=== PATIENT | male | born 1950 | race Caucasian/White ===

== ENCOUNTER 2016-06-15 16:46 | Inpatient (IN) | payer MEDICARE ==
[2016-06-15] MEDS ORDERED: ACETAMINOPHEN 325 MG TABLET PO PRN (16:49)
--- NOTE | 2016-06-15 17:12 | PDOC H&P ---
History of Present Illness Admission Date/PCP: 06/15/16 16:46 Patient complains of: Chest pain dizziness and sore throat History of Present Illness: ARCHIE PAINTING is a 65 year old Patient's came to the my office with the complaining of a chest pain on and off since last 3 and not feeling well and feeling dizzy since also complained of some sore throat and mild congestions. Patient have a history of cardiac arrest and status post defibrillator placement at the groin. Patient also have a cardiac cath was done in 2005 and was normal. Also see a cardiology at [place] in the last seen in 2009 and it was stress test was done. Patient also have a replacement of the defibrillator 4 months back. Also significant history of the peripheral vascular disease and the patient's see the vascular surgeon for the. Out of the several blood pressure medication and cholesterol medication since last 6 week and patient is not taking the medications as prescribed patients taking the aspirin and Plavix every day. My office patient was not complaining with chest pain but not feeling well patients at this point with the multiple comorbidities started admitted in the hospital for further evaluation and treatment. Patient also have a significant history of the right-sided inguinal hernia since last 1 year and since last 3 months it is getting more worse patient still able to reduce to back but is more uncomfortable at this point. Multiple comorbidity this with the patient's and directly admit the patient is in the hospital for further evaluation and treatment and patient is agreeable Past Medical History Cardiac History Note: History of the cardiac arrest status post defibrillator and a history of Brugada disease EENT Medical History: Denies: None, Cataracts, Eyes, Ears, Nose, Throat, Other Neurological Medical History: Denies: None, Hemorrhagic CVA, Ischemic CVA, Migraine, Multiple Sclerosis, Seizures, Other Endocrine Medical History: Denies: None, Diabetes Mellitus Type 1, Diabetes Mellitus Type 2, Gestational Diabetes, Hyperthyroidism, Hypothyroidism, Obesity, Other Renal/ Medical History: Denies: None, Chronic Kidney Disease, End Stage Renal Disease, Nephrolithiasis, Other Malignancy Medical History: Denies: None, Bone Cancer, Brain Cancer, Breast Cancer, Cervical Cancer, Colorectal Cancer, Leukemia, Liver Cancer, Lung Cancer, Lymphoma, Ovarian Cancer , Pancreatic Cancer, Renal (Kidney) Cancer, Skin Cancer, Other GI Medical History: Denies: None, Cirrhosis, Crohn's Disease, Diverticulitis, Gastroesophageal Reflux Disease, Hepatitis, Hiatal Hernia, Peptic Ulcer Disease, Ulcerative Colitis, Other Musculoskeltal Medical History: Reports: Arthritis Skin Medical History: Denies: None, Eczema, Psoriasis, Other Psychiatric Medical History: Reports: Depression Traumatic Medical History: Denies: None, Gunshot Wound, Pneumothorax, Stab Wound, Traumatic Brain Injury , Other Hematology: Denies: None, Anemia, Hemophilia, Sickle Cell Disease, Bleeding Tendencies, Heparin Induced Thrombocytopenia, Neutropenia, Other Infectious Medical History: Denies: None, Clostridium Difficile, Hepatitis B, Hepatitis C, HIV, Methicillin-Resistant Staph Aureus, Vancomycin-Resistant Enterococci, Other Past Surgical History Past Surgical History: Reports: Internal Defibrillator, Vascular Surgery Social History Smoking Status: Current Every Day Smoker Frequency of Alcohol Use: Social Hx Recreational Drug Use: No Hx Prescription Drug Abuse: No Family History Family History: Reviewed & Not Pertinent Parental Family History Reviewed: Yes Children Family History Reviewed: Yes Sibling(s) Family History Reviewed.: Yes Review of Systems Constitutional: PRESENT: weakness. ABSENT: chills, fever(s), headache(s), weight gain, weight loss Eyes: ABSENT: visual disturbances Ears: ABSENT: hearing changes Cardiovascular: PRESENT: chest pain. ABSENT: dyspnea on exertion, edema, orthropnea, palpitations Respiratory: ABSENT: cough, hemoptysis Gastrointestinal: ABSENT: abdominal pain, constipation, diarrhea, hematemesis, hematochezia, nausea, vomiting Genitourinary: ABSENT: dysuria, hematuria Musculoskeletal: ABSENT: joint swelling Integumentary: ABSENT: rash, wounds Neurological: PRESENT: dizziness. ABSENT: abnormal gait, abnormal speech, confusion, focal weakness, syncope Psychiatric: ABSENT: anxiety, depression, homidical ideation, suicidal ideation Endocrine: ABSENT: cold intolerance, heat intolerance, menstrual abnormalities, polydipsia, polyuria Hematologic/Lymphatic: ABSENT: easy bleeding, easy bruising, lymphadenopathy Physical Exam General appearance: PRESENT: no acute distress, well-developed, well-nourished Head exam: PRESENT: atraumatic, normocephalic Eye exam: PRESENT: conjunctiva pink, EOMI, PERRLA. ABSENT: scleral icterus Ear exam: PRESENT: normal external ear exam Mouth exam: PRESENT: moist, tongue midline Neck exam: PRESENT: full ROM. ABSENT: carotid bruit, JVD, lymphadenopathy, thyromegaly Cardiovascular exam: PRESENT: RRR. ABSENT: diastolic murmur, rubs, systolic murmur Pulses: PRESENT: normal dorsalis pedis pul, +2 pedal pulses bilateral Vascular exam: PRESENT: normal capillary refill GI/Abdominal exam: PRESENT: hernia - Right inguinal hernia, normal bowel sounds , soft. ABSENT: distended, guarding, mass, organolmegaly, rebound, tenderness Rectal exam: PRESENT: deferred Neurological exam: PRESENT: alert, awake, oriented to person, oriented to place , oriented to time, oriented to situation, CN II-XII grossly intact. ABSENT: motor sensory deficit Psychiatric exam: PRESENT: appropriate affect, normal mood. ABSENT: homicidal ideation, suicidal ideation Skin exam: PRESENT: dry, intact, warm. ABSENT: cyanosis, rash Assessment & Plan - Diagnosis (1) Chest pain Qualifiers: Chest pain type: unspecified Qualified Code(s): R07.9 - Chest pain, unspecified Is this a current diagnosis for this admission?: YesPlan: Admit the patient in the telemetry and was put the patient on OCP protocol and consulted cardiology (2) Inguinal hernia of right side without obstruction or gangrene Is this a current diagnosis for this admission?: YesPlan: Consult to general surgery (3) Cardiac defibrillator in situ Is this a current diagnosis for this admission?: YesPlan: Recently change at the [place] (4) Brugada syndrome Is this a current diagnosis for this admission?: YesPlan: Chest post cardiac defibrillator (6) H/O cardiac arrhythmia Is this a current diagnosis for this admission?: YesPlan: Currently stable (7) Hypertension Qualifiers: Hypertension type: essential hypertension Qualified Code(s): I10 - Essential (primary) hypertension Is this a current diagnosis for this admission?: YesPlan: Uncontrolled because of the patient is non-comply and not taking the medications as last 6 week (8) Hyperlipidemia Is this a current diagnosis for this admission?: YesPlan: Currently on a statin but not taking as prescribed (9) Sore throat (viral) Is this a current diagnosis for this admission?: YesPlan: Most likely a viral will do the strep test and put the patient on IV Rocephin (10) Peripheral vascular disease Is this a current diagnosis for this admission?: YesPlan: Currently on aspirin and Plavix - Time Time Spent: 30 to 50 Minutes Medications reviewed and adjusted accordingly: Yes Anticipated discharge: Home Within: within 48 hours - Inpatient Certification Medical Necessity: Failure to Improve With Outpatient Therapy, Significant Comorbidiites Make Outpatient Treatment Too Risky, Need Close Monitoring Due to Risk of Patient Decompensation 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
[2016-06-15 17:30] LABS: ABSOLUTE BASOPHILS # (AUTO) 0.1 10^3/uL (0.0-0.2); ABSOLUTE EOSINOPHILS # (AUTO) 0.2 10^3/uL (0.0-0.6); ABSOLUTE LYMPHOCYTES (AUTO) 2.1 10^3/uL (0.5-4.7); ABSOLUTE MONOCYTES (AUTO) 0.7 10^3/uL (0.1-1.4); ABSOLUTE NEUT (AUTO) 7.6 10^3/uL (1.7-8.2); BASOPHILS % (AUTO) 0.6 % (0-2); EOSINOPHILS % (AUTO) 2.3 % (0-6); HEMATOCRIT 49.9 % (37.9-51.0); HEMOGLOBIN 16.8 g/dL (13.5-17.0); HGB HCT DIFFERENCE 0.5; MEAN CORPUSCULAR HEMOGLOBIN 28.4 pg (27.0-33.4); MEAN CORPUSCULAR HGB CONC 33.7 g/dL (32.0-36.0); MEAN CORPUSCULAR VOLUME 84 fl (80-97); MONOCYTES % (AUTO) 6.2 % (3-13); RED BLOOD COUNT 5.93 10^6/uL (4.35-5.55); RED CELL DISTRIBUTION WIDTH 15.3 % (11.5-14.0); SEGMENTED NEUTROPHILS % (AUTO) 70.9 % (42-78); WHITE BLOOD COUNT 10.7 10^3/uL (4.0-10.5)
[2016-06-15] MEDS ORDERED: INFLUENZA ADLT QUAD (36MOS+) 2016-17 VAC 0.5 ML SYR IM PRN (17:35)
[2016-06-15 17:49] LABS: ALANINE AMINOTRANSFERASE 49 U/L (21-72); ALBUMIN 4.9 g/dL (3.5-5.0); ALKALINE PHOSPHATASE 126 U/L (38-126); ANION GAP 16 (5-19); ASPARTATE AMINO TRANSFERASE 25 U/L (17-59); BILIRUBIN,TOTAL 0.5 mg/dL (0.2-1.3); BLOOD UREA NITROGEN 14 mg/dL (7-20); CALCIUM 10.5 mg/dL (8.4-10.2); CARBON DIOXIDE 25 mmol/L (22-30); CHLORIDE 102 mmol/L (98-107); CREATININE RESULT 0.83 mg/dL (0.52-1.25); GLUCOSE 83 mg/dL (75-110); POTASSIUM 4.6 mmol/L (3.6-5.0); SODIUM 142.5 mmol/L (137-145); TOTAL PROTEIN 7.7 g/dL (6.3-8.2)
--- NOTE | 2016-06-15 17:57 | PDOC CONSULTATION ---
History of Present Illness Admission Date/PCP: 06/15/16 16:46 History of Present Illness: 65-year-old male with the several year history of enlarging left inguinal hernia. He has had them chronic cough secondary to lisinopril recently and his hernia has worsened. It has been a scrotal hernia that was reducible but the it no longer is reducible. Patient denies any nausea or vomiting and denies any abdominal pain nor bowel habit changes. The hernia has not been reducible for quite some time now. He is currently in the hospital for evaluation of chest pain. Past Medical History Cardiac Medical History: Reports: Coronary Artery Disease, Peripheral Vascular Disease EENT Medical History: Denies: None, Cataracts, Eyes, Ears, Nose, Throat, Other Neurological Medical History: Denies: None, Hemorrhagic CVA, Ischemic CVA, Migraine, Multiple Sclerosis, Seizures, Other Endocrine Medical History: Denies: None, Diabetes Mellitus Type 1, Diabetes Mellitus Type 2, Gestational Diabetes, Hyperthyroidism, Hypothyroidism, Obesity, Other Renal/ Medical History: Denies: None, Chronic Kidney Disease, End Stage Renal Disease, Nephrolithiasis, Other Malignancy Medical History: Denies: None, Bone Cancer, Brain Cancer, Breast Cancer, Cervical Cancer, Colorectal Cancer, Leukemia, Liver Cancer, Lung Cancer, Lymphoma, Ovarian Cancer , Pancreatic Cancer, Renal (Kidney) Cancer, Skin Cancer, Other GI Medical History: Denies: None, Cirrhosis, Crohn's Disease, Diverticulitis, Gastroesophageal Reflux Disease, Hepatitis, Hiatal Hernia, Peptic Ulcer Disease, Ulcerative Colitis, Other Musculoskeltal Medical History: Reports: Arthritis Skin Medical History: Denies: None, Eczema, Psoriasis, Other Psychiatric Medical History: Reports: Depression Traumatic Medical History: Denies: None, Gunshot Wound, Pneumothorax, Stab Wound, Traumatic Brain Injury , Other Hematology: Denies: None, Anemia, Hemophilia, Sickle Cell Disease, Bleeding Tendencies, Heparin Induced Thrombocytopenia, Neutropenia, Other Infectious Medical History: Denies: None, Clostridium Difficile, Hepatitis B, Hepatitis C, HIV, Methicillin-Resistant Staph Aureus, Vancomycin-Resistant Enterococci, Other Past Surgical History Past Surgical History: Reports: Internal Defibrillator, Vascular Surgery, Other - Status post several ventral hernia repair last one with mesh which failed. Social History Smoking Status: Current Every Day Smoker Frequency of Alcohol Use: Social Hx Recreational Drug Use: No Drugs: None Hx Prescription Drug Abuse: No Family History Family History: Reviewed & Not Pertinent Parental Family History Reviewed: No Children Family History Reviewed: No Sibling(s) Family History Reviewed.: No Medication/Allergy Allergies/Adverse Reactions: No Known Allergies Allergy (Unverified 06/15/16 17:26) Physical Exam Vital Signs: Temp Pulse Resp BP Pulse Ox 70 06/15/16 16:59 Intake & Output 06/14/16 06/15/16 06/16/16 06:59 06:59 06:59 Intake Total 0 Balance 0 Weight 87.543 kg General appearance: PRESENT: no acute distress Neck exam: PRESENT: other - Supple with no masses Respiratory exam: PRESENT: clear to auscultation jada Cardiovascular exam: PRESENT: RRR GI/Abdominal exam: PRESENT: other - Soft nondistended nontender to palpation. An epigastric fist-sized the hernia that is reducible. Gentrourinary exam: PRESENT: other - Huge scrotal hernia that is soft and partially reducible with no tenderness and no erythema. Unable to palpate the left testicle well due to the herniation. The right testicle feels normal. Patient does have a right inguinal hernia as well but it is the shallow and only palpable with Valsalva and spontaneously reduces. Extremities exam: PRESENT: other - No swelling Neurological exam: PRESENT: alert, awake Psychiatric exam: PRESENT: appropriate affect Results Laboratory Results: 06/15/16 17:15 06/15/16 17:15 06/15/16 06/15/16 17:15 17:15 WBC 10.7 H RBC 5.93 H Hgb 16.8 Hct 49.9 MCV 84 MCH 28.4 MCHC 33.7 RDW 15.3 H Plt Count 408 Seg Neutrophils % 70.9 Lymphocytes % 20.0 Monocytes % 6.2 Eosinophils % 2.3 Basophils % 0.6 Absolute Neutrophils 7.6 Absolute Lymphocytes 2.1 Absolute Monocytes 0.7 Absolute Eosinophils 0.2 Absolute Basophils 0.1 Sodium Cancelled Potassium Cancelled Chloride Cancelled Carbon Dioxide Cancelled Anion Gap Cancelled BUN Cancelled Creatinine Cancelled Est GFR ( Amer) Cancelled Est GFR (Non-Af Amer) Cancelled Glucose Cancelled Calcium Cancelled Assessment & Plan - Diagnosis (1) Bilateral inguinal hernia Is this a current diagnosis for this admission?: YesPlan: The right side is asymptomatic and incidental and does not require repair at this time. The left side is huge and scrotal and chronically incarcerated. He will require repair of this hernia once his cardiac workup is complete and that he is deemed fit for surgery. He has no acute problems with this hernia. Please have him see me as an outpatient for scheduling of his left inguinal hernia once his cardiology evaluation has been completed.
[2016-06-15 17:59] LABS: CREATINE KINASE MB 2.43 ng/mL (<4.55); TROPONIN I 0.032 ng/mL
[2016-06-15] MEDS ORDERED: ENOXAPARIN SODIUM INJ 40 MG/0.4 ML DISP.SYRIN SUBCUT ONE (18:00)
[2016-06-15] MEDS: LANSOPRAZOLE 15 MG TAB.RAP.DR PO SCH (18:37)
--- NOTE | 2016-06-15 18:57 | PDOC CONSULTATION ---
[id number] pains and preop clearance History of Present Illness Admission Date/PCP: 06/15/16 16:46 Patient complains of: Chest pains History of Present Illness: 65-year-old male with the several year history of enlarging left inguinal hernia. He has had them chronic cough secondary to lisinopril recently and his hernia has worsened. It has been a scrotal hernia that was reducible but the it no longer is reducible. Patient denies any nausea or vomiting and denies any abdominal pain nor bowel habit changes. The hernia has not been reducible for quite some time now. He is currently in the hospital for evaluation of chest pain. Patient described the chest discomfort as aching as well as sharp, off and on. Patient claims that they tend to improve after drinking of soda. Patient does take Pepcid on a when necessary basis. Patient denied any significant exertional component to the chest pain. Patient does have history of peripheral vascular disease having had peripheral bypass surgery in the right lower leg below the knee for a ischemic toe. Patient does have significant cardiac risk factors. This history was reviewed and confirmed. Past Medical History Cardiac Medical History: Reports: Peripheral Vascular Disease, Other - Brugada syndrome, status post defibrillator placement EENT Medical History: Denies: None, Cataracts, Eyes, Ears, Nose, Throat, Other Neurological Medical History: Denies: None, Hemorrhagic CVA, Ischemic CVA, Migraine, Multiple Sclerosis, Seizures, Other Endocrine Medical History: Denies: None, Diabetes Mellitus Type 1, Diabetes Mellitus Type 2, Gestational Diabetes, Hyperthyroidism, Hypothyroidism, Obesity, Other Renal/ Medical History: Denies: None, Chronic Kidney Disease, End Stage Renal Disease, Nephrolithiasis, Other Malignancy Medical History: Denies: None, Bone Cancer, Brain Cancer, Breast Cancer, Cervical Cancer, Colorectal Cancer, Leukemia, Liver Cancer, Lung Cancer, Lymphoma, Ovarian Cancer , Pancreatic Cancer, Renal (Kidney) Cancer, Skin Cancer, Other GI Medical History: Denies: None, Cirrhosis, Crohn's Disease, Diverticulitis, Gastroesophageal Reflux Disease, Hepatitis, Hiatal Hernia, Peptic Ulcer Disease, Ulcerative Colitis, Other Musculoskeltal Medical History: Reports: Arthritis Skin Medical History: Denies: None, Eczema, Psoriasis, Other Psychiatric Medical History: Reports: Depression Traumatic Medical History: Denies: None, Gunshot Wound, Pneumothorax, Stab Wound, Traumatic Brain Injury , Other Hematology: Denies: None, Anemia, Hemophilia, Sickle Cell Disease, Bleeding Tendencies, Heparin Induced Thrombocytopenia, Neutropenia, Other Infectious Medical History: Denies: None, Clostridium Difficile, Hepatitis B, Hepatitis C, HIV, Methicillin-Resistant Staph Aureus, Vancomycin-Resistant Enterococci, Other Past Surgical History Past Surgical History: Reports: Internal Defibrillator, Vascular Surgery, Other - Status post several ventral hernia repair last one with mesh which failed. Social History Information Source: Patient Smoking Status: Current Every Day Smoker Frequency of Alcohol Use: Social Hx Recreational Drug Use: No Drugs: None Hx Prescription Drug Abuse: No Family History Family History: Reviewed & Not Pertinent Parental Family History Reviewed: Yes Children Family History Reviewed: Yes Sibling(s) Family History Reviewed.: Yes Medication/Allergy Home Medications: Albuterol Sulfate [Ventolin HFA MDI 18 GM] 2 puff IH Q4HP PRN 06/15/16 Aspirin [Aspirin EC] 81 mg PO QHS 06/15/16 Atorvastatin Calcium [Lipitor 80 mg Tablet] 80 mg PO DAILY 06/15/16 Carvedilol [Coreg 25 mg Tablet] 25 mg PO BID 06/15/16 Clopidogrel Bisulfate [Plavix 75 mg Tablet] 75 mg PO DAILY 06/15/16 Famotidine [Pepcid 20 mg Tablet] 20 mg PO DAILYP PRN 06/15/16 Gabapentin [Neurontin 300 mg Capsule] 300 mg PO TID 06/15/16 Lisinopril [Prinivil 40 mg Tablet] 40 mg PO DAILY 06/15/16 Meloxicam [Mobic 15 mg Tablet] 15 mg PO DAILY 06/15/16 Naproxen Sodium [Aleve] 1 tab PO DAILYP PRN 06/15/16 Sertraline HCl [Zoloft] 100 mg PO DAILY 06/15/16 Allergies/Adverse Reactions: No Known Allergies Allergy (Unverified 06/15/16 17:26) Review of Systems Review of Systems: Please see history of present illness and past medical history as wall. Constitutional: No fever or chills reported. Head : No recent chronic headaches, recent head injury. Eyes: No recent eye pain, diplopia, redness, discharge, acute visual changes. Ears: No recent chronic ear pain, acute hearing loss, ear discharge. Oral cavity: No recent ulcerations, bleeding, oral cavity discomfort. Neck: No recent acute neck pain reported. Hematologic: No recent easy bruising or bleeding or hematologic malignancy reported. Lymphatic: No recent lymphatic malignancy, chronic lymphadenopathy reported yet Cardiovascular system review: See history of present illness. No recent defibrillator discharges. No recent syncope or near syncope. Respiratory system review: No recent chronic cough, hemoptysis, blood clots in the lungs reported. Mild Shortness of breath on exertion Gastrointestinal system review: Negative for any recent acute or chronic abdominal pain, hematemesis, melena, recent change in bowel habits. Patient has chronic abdominal hernia and chronic left inguinal hernia. Genitourinary system review: No recent acute or chronic hematuria, flank pain, UTI etc. reported. Skin system review: Negative for any recent abnormal bruising, no rash, no pruritus reported. Neurologic: No prior history of strokes, mini strokes, seizure disorder. Psychologic: No history of major psychosis or depression reported. Musculoskeletal: Minor aches and pains reported. No acute joint swelling reported. Endocrine: No recent polyuria, polydipsia, recent heat or cold intolerance. Physical Exam Vital Signs: Temp Pulse Resp BP Pulse Ox 70 06/15/16 16:59 Intake & Output 06/14/16 06/15/16 06/16/16 06:59 06:59 06:59 Intake Total 0 Balance 0 Weight 87.543 kg Exam: GENERAL: well-nourished and in no acute distress. Alert and oriented x3 HEAD: Atraumatic, normocephalic. EYES: Pupils equal round and reactive to light, extraocular movements intact, sclera anicteric, conjunctiva are normal. ENT: TMs normal, nares patent, oropharynx clear without exudates. Moist mucous membranes. No oral ulcerations or bleeding gums noted NECK: supple without lymphadenopathy. Trachea is central. No cervical or axillary lymphadenopathy noted. Carotids are 2+, JVD WNL LUNGS: Respiration seems nonlabored, no significant accessory muscle action noted. Breath sounds clear to auscultation bilaterally and equal. No wheezes rales or rhonchi. No significant dullness noted on percussion. Defibrillator noted on the left side. CHEST: Palpation of the chest wall shows no significant chest wall tenderness or abnormalities. Defibrillator noted on the left side. HEART: [place] [employer], No PSH, 1/6 SANTO aortic area, 1/6 robert systolic murmur mitral area, no rubs, no gallops. ABDOMEN: Soft, no significant tenderness appreciated, normoactive bowel sounds. No guarding, no rebound. No rigidity noted . No masses appreciated. Abdominal wall hernia noted and also rather large left inguinal hernia noted. EXTREMITIES: Pedal pulses are 1-2+, no calf tenderness noted. No clubbing or cyanosis.trace pedal edema noted NEUROLOGICAL: Focused neurological exam showed no significant neurologic deficit. Normal speech, no focal weakness appreciated. PSYCH: Normal mood, normal affect. Judgment and insight within normal limits. SKIN: No significant ecchymosis, rash, ulcerations or signs of pruritus noted. MUSCULOSKELETAL EXAM: No significant joint swelling noted. Results Laboratory Results: 06/15/16 17:15 06/15/16 17:15 06/15/16 06/15/16 06/15/16 17:15 17:15 17:15 WBC 10.7 H RBC 5.93 H Hgb 16.8 Hct 49.9 MCV 84 MCH 28.4 MCHC 33.7 RDW 15.3 H Plt Count 408 Seg Neutrophils % 70.9 Lymphocytes % 20.0 Monocytes % 6.2 Eosinophils % 2.3 Basophils % 0.6 Absolute Neutrophils 7.6 Absolute Lymphocytes 2.1 Absolute Monocytes 0.7 Absolute Eosinophils 0.2 Absolute Basophils 0.1 Sodium Cancelled 142.5 Potassium Cancelled 4.6 Chloride Cancelled 102 Carbon Dioxide Cancelled 25 Anion Gap Cancelled 16 BUN Cancelled 14 Creatinine Cancelled 0.83 Est GFR ( Amer) Cancelled > 60 Est GFR (Non-Af Amer) Cancelled > 60 Glucose Cancelled 83 Calcium Cancelled 10.5 H Total Bilirubin 0.5 AST 25 ALT 49 Alkaline Phosphatase 126 Total Protein 7.7 Albumin 4.9 06/15/16 06/15/16 06/15/16 17:15 17:15 17:15 Creatine Kinase 77 CK-MB (CK-2) 2.43 Troponin I 0.032 NT-Pro-B Natriuret Pep 76 EKG Comments: Sinus rhythm, ST elevation V1 and V2 along with prominent R, consistent with Brugada syndrome. Assessment & Plan - Diagnosis (1) Chest pain Qualifiers: Chest pain type: unspecified Qualified Code(s): R07.9 - Chest pain, unspecified Is this a current diagnosis for this admission?: Yes (2) Hyperlipidemia Qualifiers: Hyperlipidemia type: other hyperlipidemia Qualified Code(s): E78.4 - Other hyperlipidemia Is this a current diagnosis for this admission?: Yes (3) Hypertension Qualifiers: Hypertension type: essential hypertension Qualified Code(s): I10 - Essential (primary) hypertension Is this a current diagnosis for this admission?: Yes (4) Peripheral vascular disease Is this a current diagnosis for this admission?: Yes (5) Gastroesophageal reflux Qualifiers: Esophagitis presence: esophagitis presence not specified Qualified Code(s): K21.9 - Gastro-esophageal reflux disease without esophagitis Is this a current diagnosis for this admission?: Yes (6) Brugada syndrome Is this a current diagnosis for this admission?: Yes (7) Cardiac defibrillator in situ Is this a current diagnosis for this admission?: Yes - Notes Notes: Patient describes history of Brugada syndrome. He had internal defibrillator placed. He claims that he had heart catheterization which had shown normal coronaries. Patient however does have significant cardiac risk factors. Chest pain: In view of significant risk factors, patient will benefit from nuclear stress test. This will be scheduled. Unfortunately, cannot be done tomorrow because of some renovations being done in the stress lab. At this point will recommend cycling cardiac enzymes and EKG. If cardiac enzymes are negative, patient can be discharged with close cardiology follow-up and assessment the stress test. Patient does describe chest discomfort resolving with drinking of soda. This raises the possibility of distal esophagitis, gastroesophageal reflux. Will place patient on double dose proton pump inhibitor and see if this will improve his chest discomfort. Hypertension: Recommend good control of blood pressure. Dyslipidemia: Continue statin therapy. PVD: Currently stable. Gastroesophageal reflux: This is noted based on history. Patient to be placed on double dose proton pump inhibitor. Patient encouraged to report any further problems. If patient cardiac enzymes remain negative, and if he remained chest pain-free, patient could be discharged with outpatient stress test being scheduled. 2-D echo reviewed showed normal LVEF. No significant valvular abnormalities were noted. - Time Time Spent: 30 to 50 Minutes - CODE STATUS was discussed, patient remains full code. Multiple medical problems were addressed.More than 50% of the time spent coordinating care, discussing management plans with involved caregivers. Management plans discussed with involved personnels. Medical decision making was of moderate complexity.
[2016-06-15] MEDS ORDERED: CEFTRIAXONE 1 GM/D5W RTU 1 GM/50 ML RTUPB IV SCH (19:00)
--- NOTE | 2016-06-15 19:48 | XCELERA REPORT ---
[address] [address] Transthoracic Echocardiogram Report Name: ARCHIE PAINTING Age: 65 yrs Gender: Male : 1950 Patient Status: Inpatient Patient Location: [id number]\S\426\S\B Study Date: 06/15/2016 06:02 PM Height: 72 in Weight: 195 lb BSA: 2.1 m2 Procedure: A complete two-dimensional transthoracic echocardiogram was performed (2D, M-mode, spectral and color flow Doppler). The study was technically adequate with some images being suboptimal in quality. Reason For Study: chest pain Ordering Physician: CARLOS DANIEL Performed By: James Ledesma Interpretation Summary The left ventricular ejection fraction is normal. There is mild concentric left ventricular hypertrophy. The left ventricle is grossly normal size. Doppler measurements suggest pseudonormalized left ventricular relaxation, which is associated with grade II/IV or mild to moderate diastolic dysfunction Wall motion cannot be accurately commented on, but no definite regional wall motion abnormalities noted. The right ventricle is mildly dilated. The right ventricular systolic function is normal. The right atrium is mildly dilated. The left atrial size is normal. There is no mitral valve stenosis. There is a trace amount of mitral regurgitation There is no aortic valve stenosis There is a trace amount of aortic regurgitation There is a trace or physiologic amount of tricuspid regurgitation Tricuspid regurgitation jet envelope not well defined to measure RV systolic pressure accurately. The aortic root is not well visualized but is probably normal size. The inferior vena cava appeared normal and decreased > 50% with respiration (RAP 5-10 mmHg) There is no pericardial effusion. MMode/2D Measurements \T\ Calculations RVDd: 3.3 cm LVIDd: 5.4 cm FS: 42.0 % Ao root diam: 3.3 cm IVSd: 1.1 cm LVIDs: 3.1 cm EDV(Teich): 142.4 ml LVPWd: 1.1 cm ESV(Teich): 39.2 ml Ao root area: 8.6 cm2 EF(Teich): 72.5 % LA dimension: 3.4 cm Doppler Measurements \T\ Calculations MV E max michael: MV P1/2t max michael: Ao V2 max: LV V1 max P.7 cm/sec 52.8 cm/sec 129.4 cm/sec 4.1 mmHg MV A max michael: MV P1/2t: 51.9 msec Ao max PG: LV V1 max: 72.5 cm/sec 6.7 mmHg 100.9 cm/sec MV E/A: 0.71 MVA(P1/2t): 4.2 cm2 MV dec slope: 297.9 cm/sec2 MV dec time: 0.18 sec PA V2 max: TR max michael: RAP systole: 80.9 cm/sec 198.7 cm/sec 10.0 mmHg PA max PG: TR max P.8 mmHg 2.6 mmHg RVSP(TR): 25.8 mmHg Left Ventricle The left ventricle is grossly normal size. There is mild concentric left ventricular hypertrophy. The left ventricular ejection fraction is normal. Doppler measurements suggest pseudonormalized left ventricular relaxation, which is associated with grade II/IV or mild to moderate diastolic dysfunction. Wall motion cannot be accurately commented on, but no definite regional wall motion abnormalities noted. Right Ventricle The right ventricle is mildly dilated. The right ventricular systolic function is normal. Atria The right atrium is mildly dilated. The left atrial size is normal. Interarterial septum not well visualized and not well dopplered. Cannot comment on ASD/PFO presence. Mitral Valve The mitral valve is grossly normal. There is no mitral valve stenosis. There is a trace amount of mitral regurgitation. Aortic Valve The aortic valve is grossly normal. There is no aortic valve stenosis. There is a trace amount of aortic regurgitation. Tricuspid Valve The tricuspid valve is not well visualized secondary to technical limitations. There is no tricuspid stenosis. There is a trace or physiologic amount of tricuspid regurgitation. Tricuspid regurgitation jet envelope not well defined to measure RV systolic pressure accurately. Pulmonic Valve The pulmonic valve is not well visualized. Great Vessels The aortic root is not well visualized but is probably normal size. The inferior vena cava appeared normal and decreased > 50% with respiration (RAP 5-10 mmHg). Effusions There is no pericardial effusion. Incidental Findings Pacemaker wire noted. : CARLOS DANIEL > Ashvin Perez
--- NOTE | 2016-06-15 22:19 | EKG REPORT ---
SEVERITY:- ABNORMAL ECG - SINUS RHYTHM PROBABLE LEFT ATRIAL ABNORMALITY RBBB AND LAFB LEFT VENTRICULAR HYPERTROPHY CONSIDER BRUGADA SYNDROME : Confirmed by: Ashvin Perez 15-Jun-2016 22:19:00
[2016-06-15 23:27] LABS: CREATINE KINASE MB 2.03 ng/mL (<4.55); TROPONIN I 0.036 ng/mL
[2016-06-16] MEDS ORDERED: LANSOPRAZOLE 30 MG TAB.RAP.DR PO SCH (06:00)
[2016-06-16 06:18] LABS: MAGNESIUM 2.2 mg/dL (1.6-2.3)
[2016-06-16 06:27] LABS: CREATINE KINASE MB 1.96 ng/mL (<4.55); TROPONIN I 0.031 ng/mL
[2016-06-16] MEDS: LANSOPRAZOLE 15 MG TAB.RAP.DR PO SCH (07:07)
[2016-06-16] MEDS ORDERED: ENOXAPARIN SODIUM INJ 40 MG/0.4 ML DISP.SYRIN SUBCUT SCH (08:00)
[2016-06-16] MEDS ORDERED: ALBUTEROL SULFATE HFA (90 MCG/PUFF) 8 GM MDI (1 MDI/ER DISP) IH PRN (08:00)
[2016-06-16] MEDS ORDERED: ALBUTEROL SULFATE HFA (90 MCG/PUFF) 200 PUFF/8.5 GM MDI IH PRN (08:12)
[2016-06-16 08:44] VITALS: BP 156/84
--- NOTE | 2016-06-16 09:50 | PDOC DISCHARGE SUMMARY ---
General - Admit/Disc Date/PCP Admission Date/Primary Care Provider: 06/15/16 16:46 Discharge Date: 06/16/16 - Discharge Diagnosis (1) Chest pain Is this a current diagnosis for this admission?: YesSummary: All cardiac workup is negative and seen by the Dr. Perez and suggest the follow as outpatient stress test (2) Inguinal hernia of right side without obstruction or gangrene Is this a current diagnosis for this admission?: YesSummary: Bilateral inguinal hernia more on the left and per surgery follow-up as outpatient and no need for any further surgical interventions in this hospital admission (3) Cardiac defibrillator in situ Is this a current diagnosis for this admission?: YesSummary: Stable (4) Brugada syndrome Is this a current diagnosis for this admission?: YesSummary: And is on a defibrillator (5) H/O cardiac arrest Summary: Currently on the defibrillator (6) H/O cardiac arrhythmia Is this a current diagnosis for this admission?: YesSummary: Follow cardiology (7) Hypertension Is this a current diagnosis for this admission?: YesSummary: Stable (8) Hyperlipidemia Is this a current diagnosis for this admission?: YesSummary: Continues the Lipitor (9) Sore throat (viral) Is this a current diagnosis for this admission?: YesSummary: Strep is negative most likely a viral (10) Peripheral vascular disease Is this a current diagnosis for this admission?: YesSummary: Follow vascular surgeon - Additional Information Discharge Diet: Cardiac Discharge Activity: Activity As Tolerated, Balance Activity w/Rest, No Lifting Over 10 Pounds, Slowly Increase Activity Home Medications: Albuterol Sulfate [Ventolin HFA MDI 18 GM] 2 puff IH Q4HP PRN 06/15/16 Aspirin [Aspirin EC] 81 mg PO QHS 06/15/16 Atorvastatin Calcium [Lipitor 80 mg Tablet] 80 mg PO DAILY 06/15/16 Carvedilol [Coreg 25 mg Tablet] 25 mg PO BID 06/15/16 Clopidogrel Bisulfate [Plavix 75 mg Tablet] 75 mg PO DAILY 06/15/16 Famotidine [Pepcid 20 mg Tablet] 20 mg PO DAILYP PRN 06/15/16 Gabapentin [Neurontin 300 mg Capsule] 300 mg PO TID 06/15/16 Lisinopril [Prinivil 40 mg Tablet] 40 mg PO DAILY 06/15/16 Meloxicam [Mobic 15 mg Tablet] 15 mg PO DAILY 06/15/16 Naproxen Sodium [Aleve] 1 tab PO DAILYP PRN 06/15/16 Sertraline HCl [Zoloft] 100 mg PO DAILY 06/15/16 Amoxicillin 1 tab PO TID #21 tab 06/16/16 Omeprazole 40 mg PO DAILY #30 capsule. 06/16/16 History of Present Illness History of Present Illness: ARCHIE PAINTING is a 65 year old Patient's came to the my office with the complaining of a chest pain on and off since last 3 and not feeling well and feeling dizzy since also complained of some sore throat and mild congestions. Patient have a history of cardiac arrest and status post defibrillator placement at the groin. Patient also have a cardiac cath was done in 2005 and was normal. Also see a cardiology at [facility] in the last seen in 2009 and it was stress test was done. Patient also have a replacement of the defibrillator 4 months back. Also significant history of the peripheral vascular disease and the patient's see the vascular surgeon for the. Out of the several blood pressure medication and cholesterol medication since last 6 week and patient is not taking the medications as prescribed patients taking the aspirin and Plavix every day. My office patient was not complaining with chest pain but not feeling well patients at this point with the multiple comorbidities started admitted in the hospital for further evaluation and treatment. Patient also have a significant history of the right-sided inguinal hernia since last 1 year and since last 3 months it is getting more worse patient still able to reduce to back but is more uncomfortable at this point. Multiple comorbidity this with the patient's and directly admit the patient is in the hospital for further evaluation and treatment and patient is agreeable Hospital Course Hospital Course: This is a 65-year-old male present in the office the complaining of a chest pain on and off since last several week also complaining of left-sided inguinal hernia is making more discomfort and have a since long time so very not and not taking the medication as per patient at this point admitting in the hospital for further evaluation patient WORKUP is negative and seen by the configuration management analyst and suggested to follow as outpatient stress test patient also seen by general surgery and suggest a follow outpatients for inguinal hernia repair. Otherwise doing fair no chest pain and no other symptoms. Since hernia is also reducible. Since all blood work is stable was given all the medications and suggest to continues to take all medication also put the patient on a PPI per configuration management analyst which might contribute the patient some of the symptom. Taking the meloxicam at home for his arthritis and may contribute for his symptoms. Patient's advised to do not take the meloxicam anymore and use [id number] Tylenol. Patient is walk around in the hallway without any problem and patient' s p.o. intake is good and discussed with the cardiology and general surgery and suggest the patient's follow as outpatient. Discussed with the patient about all plan and discussed with the patient if increasing any chest pain any shortness of the breath or any abdominal pain or the hernia unable to reduce needs to go to the ER Physical Exam Vital Signs: Temp Pulse Resp BP Pulse Ox 97.5 F 60 16 156/84 H 96 06/16/16 08:39 06/16/16 08:39 06/16/16 08:39 06/16/16 08:39 06/16/16 08:39 Intake & Output 06/15/16 06/16/16 06/17/16 06:59 06:59 06:59 Intake Total 620 Balance 620 Weight 87.3 kg General appearance: PRESENT: no acute distress, well-developed, well-nourished Head exam: PRESENT: atraumatic, normocephalic Eye exam: PRESENT: conjunctiva pink, EOMI, PERRLA. ABSENT: scleral icterus Ear exam: PRESENT: normal external ear exam Mouth exam: PRESENT: moist, tongue midline Neck exam: PRESENT: full ROM. ABSENT: carotid bruit, JVD, lymphadenopathy, thyromegaly Cardiovascular exam: PRESENT: RRR. ABSENT: diastolic murmur, rubs, systolic murmur Pulses: PRESENT: normal dorsalis pedis pul, +2 pedal pulses bilateral Vascular exam: PRESENT: normal capillary refill GI/Abdominal exam: PRESENT: hernia - Bilateral inguinal hernia with reducible, normal bowel sounds, soft. ABSENT: distended, guarding, mass, organolmegaly, rebound, tenderness Rectal exam: PRESENT: deferred Neurological exam: PRESENT: alert, awake, oriented to person, oriented to place , oriented to time, oriented to situation, CN II-XII grossly intact. ABSENT: motor sensory deficit Psychiatric exam: PRESENT: appropriate affect, normal mood. ABSENT: homicidal ideation, suicidal ideation Skin exam: PRESENT: dry, intact, warm. ABSENT: cyanosis, rash Results Laboratory Results: 06/15/16 17:15 06/15/16 17:15 06/15/16 06/15/16 06/15/16 17:15 17:15 17:15 WBC 10.7 H RBC 5.93 H Hgb 16.8 Hct 49.9 MCV 84 MCH 28.4 MCHC 33.7 RDW 15.3 H Plt Count 408 Seg Neutrophils % 70.9 Lymphocytes % 20.0 Monocytes % 6.2 Eosinophils % 2.3 Basophils % 0.6 Absolute Neutrophils 7.6 Absolute Lymphocytes 2.1 Absolute Monocytes 0.7 Absolute Eosinophils 0.2 Absolute Basophils 0.1 Sodium Cancelled 142.5 Potassium Cancelled 4.6 Chloride Cancelled 102 Carbon Dioxide Cancelled 25 Anion Gap Cancelled 16 BUN Cancelled 14 Creatinine Cancelled 0.83 Est GFR ( Amer) Cancelled > 60 Est GFR (Non-Af Amer) Cancelled > 60 Glucose Cancelled 83 Calcium Cancelled 10.5 H Magnesium Total Bilirubin 0.5 AST 25 ALT 49 Alkaline Phosphatase 126 Total Protein 7.7 Albumin 4.9 06/16/16 05:09 WBC RBC Hgb Hct MCV MCH MCHC RDW Plt Count Seg Neutrophils % Lymphocytes % Monocytes % Eosinophils % Basophils % Absolute Neutrophils Absolute Lymphocytes Absolute Monocytes Absolute Eosinophils Absolute Basophils Sodium Potassium Chloride Carbon Dioxide Anion Gap BUN Creatinine Est GFR ( Amer) Est GFR (Non-Af Amer) Glucose Calcium Magnesium 2.2 Total Bilirubin AST ALT Alkaline Phosphatase Total Protein Albumin 06/15/16 06/15/16 06/15/16 17:15 17:15 17:15 Creatine Kinase 77 CK-MB (CK-2) 2.43 Troponin I 0.032 NT-Pro-B Natriuret Pep 76 06/15/16 06/15/16 06/16/16 22:40 22:40 05:09 Creatine Kinase 68 50 L CK-MB (CK-2) 2.03 Troponin I 0.036 NT-Pro-B Natriuret Pep 06/16/16 05:09 Creatine Kinase CK-MB (CK-2) 1.96 Troponin I 0.031 NT-Pro-B Natriuret Pep Impressions: Chest X-Ray 06/15/16 16:52 IMPRESSION: NO ACUTE RADIOGRAPHIC FINDING IN THE CHEST. Plan Time Spent: Less than 30 Minutes - Follow-up outpatient stress test per cardiology and follow outpatient general surgery after the stress test
[2016-06-16] MEDS ORDERED: CLOPIDOGREL BISULFATE 75 MG TABLET PO SCH (10:00)
[2016-06-16] MEDS ORDERED: CARVEDILOL 12.5 MG TABLET PO SCH (10:00)
[2016-06-16] MEDS ORDERED: LISINOPRIL 10 MG TABLET PO SCH (10:00)
[2016-06-16] MEDS ORDERED: SERTRALINE HCL 50 MG TABLET PO SCH (10:00)
--- NOTE | 2016-06-16 11:08 | EKG REPORT ---
SEVERITY:- ABNORMAL ECG - ATRIAL-PACED VS SINUS RHYTHM RBBB AND LAFB LEFT VENTRICULAR HYPERTROPHY : Confirmed by: Ashvin Perez 16-Jun-2016 11:07:45
[2016-06-16] MEDS ORDERED: GABAPENTIN 300 MG CAPSULE PO SCH (14:00)
[2016-06-16] MEDS ORDERED: ATORVASTATIN CALCIUM 80 MG TABLET PO SCH (22:00)
[2016-06-16] MEDS ORDERED: ASPIRIN 81 MG TABLET, ENT COATED PO SCH (22:00)
== END 2016-06-16 09:40 | disposition home or self-care (01) | DRG 313 ==
LOC: 4S 16:46
PROVIDERS: ADMIT Family Medicine; ATTEND Family Medicine
DX: R07.89 Other chest pain (principal); K40.91 Unilateral inguinal hernia, without obstruction or gangrene, recurrent; I73.9 Peripheral vascular disease, unspecified; I49.8 Other specified cardiac arrhythmias; M19.90 Unspecified osteoarthritis, unspecified site; Z95.810 Presence of automatic (implantable) cardiac defibrillator; Z86.74 Personal history of sudden cardiac arrest; F32.9 Major depressive disorder, single episode, unspecified; F17.210 Nicotine dependence, cigarettes, uncomplicated; E78.5 Hyperlipidemia, unspecified; I10 Essential (primary) hypertension; K21.9 Gastro-esophageal reflux disease without esophagitis; J02.8 Acute pharyngitis due to other specified organisms; Z79.82 Long term (current) use of aspirin; Z79.02 Long term (current) use of antithrombotics/antiplatelets
CPT/HCPCS: 36415; 71010; 80053; 82550; 82553; 83735; 83880; 84484; 85025; 87070; 87880; 93005; 93010; 93306; J0696; J3490

== ENCOUNTER → 2017-02-22 | Outpatient (CLI) | payer MEDICARE ==
--- NOTE | 2017-02-22 16:17 | RADIOLOGY REPORT (SQ) ---
EXAM DESCRIPTION: CT LUMBAR SPINE WITHOUT COMPLETED DATE/TIME: 02/22/2017 2:09 pm REASON FOR STUDY: LUMBAGO WITH SCIATICA, UNSPECIFIED SIDE M54.40 LUMBAGO WITH SCIATICA, UNSPECIFIED SIDE COMPARISON: None. TECHNIQUE: Axial images acquired through the lumbar spine without intravenous contrast. Images revi ewed with lung, soft tissue and bone windows. Reconstructed coronal and sagittal MPR images reviewed . All images stored on PACS. All CT scanners at this facility use dose modulation, iterative reconstruction, and/or weight based d osing when appropriate to reduce radiation dose to as low as reasonably achievable (ALARA). [facility]: Dose Right [facility]: CareDose [facility]: Dose Right [facility]: Teradose 4D [facility]: [employer] RADIATION DOSE: Up-to-date CT equipment and radiation dose reduction techniques were employed. CTDIv ol: 21.5 mGy. DLP: 642 mGy-cm. mGy. LIMITATIONS: None. FINDINGS: SEGMENTATION: Normal. No transitional anatomy. ALIGNMENT: Normal. VERTEBRAL BODIES: No fractures. No dislocation. No acute findings. DISCS: High-grade disc space loss of height with vertebral body endplate sclerosis and bony spurring from T12-L1 thru L4-5. At T12-L1, mild central canal stenosis results from broad diffuse disc bulge and bony spurring and mi ld bilateral facet and ligament hypertrophy. There is moderate right and mild left foraminal narrowi ng. At L1-2, moderate central canal stenosis results from broad diffuse disc bulge and bony spurring maxim g the mild to moderate bilateral facet and ligament hypertrophy. Mild bilateral inferior foraminal n arrowing is present. At L2-3, moderate central canal stenosis results from broad diffuse disc bulge and bony spurring and moderate bilateral facet and ligament hypertrophy. There is mild bilateral inferior foraminal narrow ing. At L3-4, moderate central canal stenosis results from broad diffuse disc bulge and bony spurring and moderate bilateral facet and ligament hypertrophy. Moderate right, mild left foraminal narrowing is present. At L4-5, broad diffuse posterior disc bulge and bony spurring along with moderate bilateral facet and ligament hypertrophy causes moderate central canal stenosis. There is moderate bilateral foraminal narrowing. At L5-S1, mild diffuse posterior soft disc bulging is present with moderate bilateral facet and ligam ent hypertrophy. No central stenosis. Mild bilateral inferior foraminal narrowing. PEDICLES, TRANSVERSE PROCESSES: No fractures. No dislocation. No acute findings. FACETS, POSTERIOR ELEMENTS: No fractures. No dislocation. HARDWARE: None in the spine. VISUALIZED RIBS: No fractures. SOFT TISSUES: No significant or acute finding in adjacent soft tissues. OTHER: No other significant finding. IMPRESSION: Multilevel central and foraminal encroachment TECHNICAL DOCUMENTATION: JOB ID: [id number] Quality ID # [id number]: Final reports with documentation of one or more dose reduction techniques (e.g., Au tomated exposure control, adjustment of the mA and/or kV according to patient size, use of iterative reconstruction technique) 2010 [employer]- All Rights Reserved
== END ==
LOC: RAD 13:32
PROVIDERS: ATTEND Family Medicine
DX: M54.40 Lumbago with sciatica, unspecified side (principal)
CPT/HCPCS: 72131

== ENCOUNTER 2018-02-27 12:11 | Day surgery (SDC) | payer MEDICARE ==
[2018-02-21 09:49] LABS: HEMATOCRIT 47.8 % (37.9-51.0); HEMOGLOBIN 15.9 g/dL (13.5-17.0); MEAN CORPUSCULAR HEMOGLOBIN 28.3 pg (27.0-33.4); MEAN CORPUSCULAR HGB CONC 33.2 g/dL (32.0-36.0); MEAN CORPUSCULAR VOLUME 85 fl (80-97); PLATELET COUNT 309 10^3/uL (150-450); RED CELL DISTRIBUTION WIDTH 15.7 % (11.5-14.0); WHITE BLOOD COUNT 10.3 10^3/uL (4.0-10.5)
[~2018-02-27 12:11] MED LIST: ACETAMINOPHEN 325 MG TABLET PO PRN; CEFAZOLIN 1 GM/D5W RTU 1 GM/50 ML RTUPB IV ONE; CEFAZOLIN 1 GM/D5W RTU 1 GM/50 ML RTUPB IV PRN; LACTATED RINGERS 1000 ML IV PRN; LIDOCAINE 0.5% INJ-PF (5 MG/ML) 50 ML SDV SUBCUT PRN; ONDANSETRON HCL INJ/PF 4 MG/2 ML SDV ONE; SUCCINYLCHOLINE CHLORIDE INJ 200 MG/10 ML VIAL ONE
[2018-02-27] MEDS ORDERED: BUPIVACAINE HCL 0.5 % INJ/PF 30 ML SDV ONE (15:21)
[2018-02-27] MEDS ORDERED: BUPIVACAINE INJ/PF LIPOSOME/PF 266 MG/20 ML SDV ONE (15:23)
[2018-02-27] MEDS ORDERED: MIDAZOLAM 2 MG/2 ML INJ ONE (15:24)
[2018-02-27] MEDS ORDERED: ACETAMINOPHEN 1,000 MG/100 ML RTUPB IV ONE (15:24)
[2018-02-27] MEDS ORDERED: PROPOFOL INJ 200 MG/20 ML VIAL IV ONE (15:24)
[2018-02-27] MEDS ORDERED: HYDROMORPHONE HCL INJ/PF 2 MG/ML AMPULE ONE (15:24)
[2018-02-27] MEDS ORDERED: MORPHINE SULFATE 10 MG/ML INJ IV PRN (16:13)
[2018-02-27] MEDS ORDERED: PROMETHAZINE HCL INJ 25 MG/1 ML VIAL IV PRN ×2 (16:13)
[2018-02-27] MEDS ORDERED: MEPERIDINE HCL/PF INJ 25 MG/1 ML DISP.SYRIN IV PRN (16:13)
[2018-02-27] MEDS ORDERED: DIPHENHYDRAMINE HCL 50 MG/ML VIAL IV PRN (16:13)
[2018-02-27] MEDS ORDERED: FENTANYL CITRATE INJ/PF 100 MCG/2 ML AMPUL IV PRN ×3 (16:13)
--- NOTE | 2018-02-27 17:29 | Operative Report ---
Operative Report DATE OF SURGERY: 02/27/18 PREOPERATIVE DIAGNOSIS: Massive left inguinal hernia POSTOPERATIVE DIAGNOSIS: Same, indirect OPERATION: 1. Left inguinal exploration. 2. Left inguinal herniorrhaphy with large Prolene UHS mesh. 3. Extremely challenging modifier SURGEON: GARY CHAIREZ 1ST CAR COOPER: MASHA SANTIZO ANESTHESIA: GA TISSUE REMOVED OR ALTERED: Lipoma of CORD and hernia sac COMPLICATIONS: None ESTIMATED BLOOD LOSS: Minimal INTRAOPERATIVE FINDINGS: See below PROCEDURE: The patient was seen in the preop holding area where the left inguinal area was marked ; The patient was taken to the main operating room where general anesthesia was induced. Arms were abducted, and the large left inguinal hernia with the sigmoid colon prolapsing into the left hemiscrotum was manually reduced with gentle pressure. The abdomen scrotum testicles were all prepped and draped in sterile fashion. Surgical plan and surgical timeout conducted. Skin was Alejandra times with quarter percent Marcaine in the standard left inguinal herniorrhaphy incision was made with a knife. Subcutaneous tissue and Axel's fascia divided with electrocautery. We came down to the external aponeurosis and this was then anesthetized with quarter percent Marcaine, then the external oblique opened along the direction of its fibers. The external or superficial inguinal ring was also opened. The ilioinguinal nerve was identified and spared throughout the dissection. We now began the dissection of the inguinal canal contents. Cord and cord structures were from cord lipoma and very large hernia sac. This was a very thin, large hernia sac which took approximately 45 minutes to dissected from all the surrounding after mentioned structures. We opened up the hernia sac, and dissected the sigmoid colon off of the posterior peritoneal wall. Once this was accomplished we reduced the colon into the free peritoneal cavity and closed the peritoneum with a running 0 PDS pursestring suture. This effectively obliterated the defect coming through the indirect space. We now cleaned up the inguinal canal, broke up any residual fibers, and visualized the floor medially which was intact but patulous. We elected to proceed with a prosthetic replacement of the inguinal floor by bringing onto the field a large UHS Ethicon hernia system. I opened up the retroperitoneum medial to the inferior epigastric vessels, and dissected the retroperitoneum free from the anterior and deep pelvic wall. Once this was accomplished we had a nice space to deployed the inner component of the dual layered mesh. We now trimmed the external component of the mesh, inserted to the conjoined tendon superiorly, lacunar ligament medially, and the long ligament inferiorly, cutting an upside down U in the mass at the 530 position to accommodate the cord structures. The new internal ring was of appropriate diameter and not too tight. We checked for bleeding there was none. We felt the repair was secure. The external oblique aponeurosis was closed along the direction of its fibers with 2 -0 Vicryl suture Axel's fascia and skin with 3-0 Vicryl and skin with Dermabond glue 20 cc of full-strength Exparel deployed in the subcutaneous tissue. Patient tolerated the procedure well, extubated, taken to recovery in stable condition. The physician assistant professor nurse education, Ms. Sosa, provided assistance during this case by: Assisting retracting tissue, instillation of local anesthesia and closure of skin incisions. The extremely difficult modifier was used due to the challenging nature of the operation, large hernia sac, prolonged time of 1 hour To perform the procedure.
[2018-02-27] MEDS ORDERED: OXYCODONE-ACETAMINOPHEN 5-325 MG TABLET PO PRN (17:30)
--- NOTE | 2018-02-27 17:30 | Discharge Summary ---
Discharge Summary (SDC) - Discharge Final Diagnosis: Left inguinal hernia Date of Surgery: 02/27/18 Discharge Date: 02/27/18 Condition: Stable Treatment or Instructions: [facility] [address], [place] [address] Discharge Instructions: Open Abdominal Procedures (Hernia, Bowel Surgery) 1.General Information: a. DO NOT DRIVE a car or operative machinery for 1-2 weeks or as long as taking Narcotic pain medication. b. DO NOT consume alcohol, tranquilizers, sleeping medication, or any non- prescribed medication for 24 hours unless approved by your doctor or as long as taking pain medication. c. DO NOT make important decisions or sign any important papers for the first 24 hours after surgery. d. When discharged home the same day as surgery have a responsible person with you the first night. 2.Activity Restriction: _8 weeks; a. Avoid heavy lifting (> 10-15 lbs), straining abdominal muscles and sports, mowing lawn, vacuum cleaner greaser and bending over a lot. b. Walking is important to avoid blood clots in the legs and deep breathing can prevent pneumonia. c. If it fine to go for walks, up and down steps, and ride in a car. 3.Treatment: a. You may shower in 24 hours. Leave skin glue intact. Do not scrub area. You may cover with gauze and tape for comfort. Do not bathe in a tub or go swimming for 2 weeks. c. Do not use oils, powders, or lotion on your incision. 4.Medications: a. You may take prescription tablets for pain if needed, one every 6 hours (_ Toradol__). b. Stop the narcotic when able since you cannot take it and drive and they cause constipation. You may take a stool softener as needed. c. You may resume all normal medications unless a change is specified by your doctors. 5.Diet: a. If going home the same day as surgery start with clear liquids, and if you do well then advance to normal foods low inf fat and protein. Smaller portion size may be olea the first night. b. When discharged after hospital stay you may resume a normal diet. 6.Notify Physician If: a. Pain is not relieved by pain medication b. Persistent nausea and vomiting c. Chills, fever (above 101) d. Persistent bleeding or swelling at the operative site e. Unable to urinate for 6-8 hours f. Increased redness, drainage, or foul smelling discharge from incision 7. Follow Up Care: a. Please call our office to schedule an appointment with your doctor for 2 weeks. In the event of any postoperative problems or questions you may call our office during business hours or the On-Call surgeon through the still operator batch or continuous at [facility]. [facility] [phone] [facility] [phone] (Ask for the surgeon deputy felony clerk) b. I understand the instructions for my postoperative care as described above and a copy has been given to me. _ Witness Patient/Significant Other Date Prescriptions: Ketorolac Tromethamine [Toradol 10 mg Tablet] 10 mg PO Q6HP PRN #20 tablet PRN Reason: Referrals: CARLOS DANIEL MD [Primary Care Provider] - Discharge Activity: No Lifting Over 10 Pounds, No Lifting/Push/Pulling, Walk Frequently Report the Following to Your Physician Immediately: Nausea, Vomiting, Fever over 101 Degrees, Unusual Bleeding, Redness, Swelling, Warmth, Drainage-Foul Smelling
[2018-02-27] MEDS ORDERED: EPHEDRINE SULFATE INJ 50 MG/1 ML AMPULE ONE (17:42)
[2018-02-27] MEDS: FENTANYL CITRATE INJ/PF 100 MCG/2 ML AMPUL ONE ×2 (17:50→17:55)
--- NOTE | 2018-02-27 18:13 | EKG REPORT ---
SEVERITY:- ABNORMAL ECG - SINUS RHYTHM RBBB AND LAFB : Confirmed by: José Miguel Degroot MD 27-Feb-2018 18:13:23
[2018-02-27] MEDS ORDERED: OXYCODONE-ACETAMINOPHEN 5-325 MG TABLET ONE (18:37)
[2018-02-27 20:06] VITALS: BP 112/77
== END 2018-02-27 19:45 | disposition home or self-care (01) ==
LOC: OROUT 12:11
PROVIDERS: ATTEND Surgery
DX: K40.90 Unilateral inguinal hernia, without obstruction or gangrene, not specified as recurrent (principal); I10 Essential (primary) hypertension; E78.5 Hyperlipidemia, unspecified; I73.9 Peripheral vascular disease, unspecified; I25.10 Atherosclerotic heart disease of native coronary artery without angina pectoris; M54.30 Sciatica, unspecified side; J44.9 Chronic obstructive pulmonary disease, unspecified; K21.9 Gastro-esophageal reflux disease without esophagitis; Z95.810 Presence of automatic (implantable) cardiac defibrillator; I25.2 Old myocardial infarction; Z95.1 Presence of aortocoronary bypass graft; Z87.891 Personal history of nicotine dependence; Z79.82 Long term (current) use of aspirin; Z79.899 Other long term (current) drug therapy; Z79.51 Long term (current) use of inhaled steroids
CPT/HCPCS: 36415; 85027; 88302 ×2; 93005; 93010; 49505; C1781; J2250; J3490 ×2; J0690; J3010; A9270; J1170; J0330; J2405; J2704; J0131; C9290; 830

== ENCOUNTER 2018-11-13 15:29 | Inpatient (IN) | payer MEDICARE ==
[2018-11-13 16:01] LABS: ABSOLUTE BASOPHILS # (AUTO) 0.1 10^3/uL (0.0-0.2); ABSOLUTE EOSINOPHILS # (AUTO) 0.2 10^3/uL (0.0-0.6); ABSOLUTE LYMPHOCYTES (AUTO) 1.6 10^3/uL (0.5-4.7); ABSOLUTE NEUT (AUTO) 9.6 10^3/uL (1.7-8.2); BASOPHILS % (AUTO) 0.5 % (0-2); EOSINOPHILS % (AUTO) 1.9 % (0-6); HEMATOCRIT 50.8 % (37.9-51.0); HEMOGLOBIN 16.6 g/dL (13.5-17.0); MEAN CORPUSCULAR HEMOGLOBIN 27.7 pg (27.0-33.4); MEAN CORPUSCULAR HGB CONC 32.7 g/dL (32.0-36.0); MEAN CORPUSCULAR VOLUME 85 fl (80-97); MONOCYTES % (AUTO) 8.2 % (3-13); PLATELET COUNT 294 10^3/uL (150-450); SEGMENTED NEUTROPHILS % (AUTO) 76.4 % (42-78); TOTAL CELLS COUNTED % (AUTO) 100 %; WHITE BLOOD COUNT 12.5 10^3/uL (4.0-10.5)
--- NOTE | 2018-11-13 16:15 | RADIOLOGY REPORT (SQ) ---
EXAM DESCRIPTION: CHEST SINGLE VIEW COMPLETED DATE/TIME: 11/13/2018 4:03 pm REASON FOR STUDY: bed 11 cp COMPARISON: AP chest 06/15/2016 EXAM PARAMETERS: NUMBER OF VIEWS: One view. TECHNIQUE: Single frontal radiographic view of the chest acquired. RADIATION DOSE: NA LIMITATIONS: None. FINDINGS: LUNGS AND PLEURA: No opacities, masses or pneumothorax. No pleural effusion. Lungs are blessing cent suggesting obstructive disease. MEDIASTINUM AND HILAR STRUCTURES: No masses. Contour normal. HEART AND VASCULAR STRUCTURES: Old sternotomy for CABG. No cardiomegaly BONES: No acute findings. HARDWARE: Left-sided dual lead pacemaker. OTHER: No other significant finding. IMPRESSION: NO ACUTE RADIOGRAPHIC FINDING IN THE CHEST. TECHNICAL DOCUMENTATION: JOB ID: [id number] [employer] [place]- All Rights Reserved Reading location - IP/workstation name: [email or web address]
[2018-11-13 16:22] LABS: ALANINE AMINOTRANSFERASE 34 U/L (21-72); ALBUMIN 4.1 g/dL (3.5-5.0); ALKALINE PHOSPHATASE 103 U/L (38-126); ANION GAP 17 (5-19); ASPARTATE AMINO TRANSFERASE 26 U/L (17-59); BILIRUBIN,DIRECT 1.1 mg/dL (0.0-0.4); BILIRUBIN,TOTAL 1.1 mg/dL (0.2-1.3); BLOOD UREA NITROGEN 49 mg/dL (7-20); CALCIUM 9.2 mg/dL (8.4-10.2); CARBON DIOXIDE 16 mmol/L (22-30); CHLORIDE 106 mmol/L (98-107); CREATINE KINASE 91 U/L (55-170); GLUCOSE 85 mg/dL (75-110); POTASSIUM 4.3 mmol/L (3.6-5.0); TOTAL PROTEIN 7.1 g/dL (6.3-8.2)
[2018-11-13 16:33] LABS: CREATINE KINASE MB 4.27 ng/mL (<4.55)
[2018-11-13 16:37] LABS: TROPONIN I 0.039 ng/mL
[2018-11-13] MEDS: NORMAL SALINE 1000 ML 1,000 ML IV PRN ×3 (17:16→23:08)
--- NOTE | 2018-11-13 17:18 | ER Document Report ---
ED General - General Chief Complaint: Chest Pain Stated Complaint: CHEST PAIN Notes: Patient in usual good state of health until last Sunday when he suddenly developed diarrhea as well as intermittent vomiting. He says he is having diarrhea every 2-1/2 to 3 hours ever since last Sunday. He has not seen any blood in the stools. Has not seen blood in his vomitus. He has not had any recent antibiotic therapy. Has a "sore" generalized abdominal pain, without localization. He went to see his primary care provider in the office this afternoon, Dr. Madison, and there he nearly passed out. They called EMS to bring him to the emergency department. Upon arrival here in the emergency department, patient's blood pressure is 80/60. Patient has had some fever and chills Sunday and Sunday, but not currently. Patient says he has been taking his blood pressure at home and is been running 80/50, when he normally runs a systolic of about 120. Patient says he is also been experiencing some intermittent chest pains for the past couple of days. He says that he had some chest pains that lasted for about 10 minutes Sunday night and it went away and then came back with pain in his jaw and was associated with sweating. PMH: Hypertension, high cholesterol, coronary bypass surgery, Patient is a former cigarette smoker, stopped about 2-1/2 years ago. TRAVEL OUTSIDE OF THE [place] IN LAST 30 DAYS: No - Related Data Allergies/Adverse Reactions: No Known Allergies Allergy (Verified 11/13/18 15:51) Past Medical History - Social History Smoking Status: Former Smoker - Stopped 2-1/2 years ago Frequency of alcohol use: None Drug Abuse: None Family History: Reviewed & Not Pertinent Patient has suicidal ideation: No Patient has homicidal ideation: No - Past Medical History Cardiac Medical History: Reports: Hx Coronary Artery Disease, Hx Heart Attack, Hx Hypercholesterolemia, Hx Hypertension, Hx Peripheral Vascular Disease Pulmonary Medical History: Reports: Hx Asthma - MILD, Hx Bronchitis, Hx COPD GI Medical History: Reports: Other - Abdominal wall hernia just above the umbilicus. Has been there a long time Musculoskeletal Medical History: Reports Hx Arthritis - GENERALIZED Psychiatric Medical History: Reports: Hx Depression Past Surgical History: Reports: Hx Appendectomy, Hx Cardiac Catheterization - triple bypass, Hx Cardiac Surgery - defibrillator, Hx Internal Defibrillator, Hx Vascular Surgery, Other - Status post several ventral hernia repair last one with mesh which failed. - Immunizations Hx Diphtheria, Pertussis, Tetanus Vaccination: Yes Review of Systems - Review of Systems Notes: REVIEW OF SYSTEMS: CONSTITUTIONAL : Denies fever currently although he did have some fever a couple days ago.. Very weak, unable to stand. EENT: Denies eye, ear, nose or mouth or throat pain or other symptoms. CARDIOVASCULAR: See HPI. RESPIRATORY: Denies cough, chest congestion, or shortness of breath. GASTROINTESTINAL: See HPI. Stable umbilical hernia in epigastrium. GENITOURINARY: Denies difficulty or painful urinating, urinary frequency, blood in urine. MUSCULOSKELETAL: Denies back or neck pain. Denies joint pain or swelling. SKIN: Denies rash or skin lesions. NEUROLOGICAL: Denies LOC or altered mental status. Denies headache. Denies sensory loss or motor deficits. ALL OTHER SYSTEMS REVIEWED AND NEGATIVE. Physical Exam - Vital signs Vitals: Pulse Ox 90 L 11/13/18 15:30 Notes: PHYSICAL EXAMINATION: GENERAL: Well-appearing, in no acute distress. Blood pressure low, in the 80s systolic. HEAD: Atraumatic, normocephalic. EYES: Pupils equal round and reactive to light, extraocular movements intact. ENT: oropharynx clear without exudates. Moist mucous membranes. NECK: Normal range of motion, supple. LUNGS: Breath sounds clear and equal bilaterally. HEART: Regular rate and rhythm without murmurs. ABDOMEN: Soft, nontender except the midline epigastric hernia which is tender to touch. Patient says that this is not different than its been and its same amount of discomfort to palpate. No guarding or rebound. No masses. No bruits heard. BACK: No tenderness throughout entire back. EXTREMITIES: Normal range of motion without pain. NEUROLOGICAL: Normal speech, too weak to test gait. Normal sensory, motor, and reflex exams. Awake, alert, and oriented x3. PSYCH: Normal mood, normal affect. SKIN: Warm, dry, no rashes. Course - Re-evaluation Re-evalutation: 11/13/18 18:10 Patient had 2 L of saline initiated. Spoke with Dr. Michel, who is on-call for this patient's primary care provider, Dr. Madison. He will admit the patient to telemetry for further hydration and evaluation. 11/14/18 10:19 Late entry: Patient's blood pressure remained low after 2 L of saline so 1/3 L was started. His systolic blood pressure was 74. I recontacted Dr. Michel and we change the patient's bed request to an [facility] bed. In spite of the patient's blood pressure being systolic 74, he is awake and alert, not diaphoretic, does not appear shocky. I think he is just extremely fluid depleted and hopefully should respond well to replenishing fluids IV. Patient's specimen for C. difficile is positive. - Vital Signs Vital signs: Temp Pulse Resp BP Pulse Ox 97.3 F 58 L 16 101/52 L 99 11/14/18 08:12 11/14/18 08:12 11/14/18 08:12 11/14/18 08:12 11/14/18 08:12 - Laboratory Result Diagrams: 11/13/18 15:25 11/13/18 15:25 Laboratory results interpreted by me: 11/13/18 11/13/18 15:25 15:25 WBC 12.5 H RBC 6.00 H RDW 16.0 H Absolute Neutrophils 9.6 H Carbon Dioxide 16 L BUN 49 H Creatinine 5.14 H Est GFR ( Amer) 14 L Est GFR (Non-Af Amer) 11 L Direct Bilirubin 1.1 H - EKG Interpretation by Me EKG shows normal: Sinus rhythm Rate: Normal Rhythm: NSR [place]/QRS: RBBB, LAHB/LAFB When compared to previous EKG there are: No significant change Critical Care Note - Critical Care Note Total time excluding time spent on procedures (mins): 40 Discharge - Discharge Clinical Impression: Vomiting and diarrhea, Prerenal azotemia, Dehydration, Chest pain, Hypotension, C. difficile diarrhea Condition: Stable Disposition: ADMITTED OBSERVATION Admitting Provider: [facility] Admitted: Telemetry
--- NOTE | 2018-11-13 18:00 | EKG REPORT ---
SEVERITY:- ABNORMAL ECG - SINUS RHYTHM RBBB AND LAFB : Confirmed by: Ashvin Perez 13-Nov-2018 17:59:27
[2018-11-13] MEDS ORDERED: NORMAL SALINE 1000 ML 1,000 ML IV ONE (18:22)
[2018-11-13] MEDS ORDERED: DOPAMINE HCL/DEXTROSE 5%-WATER 800 MG/250 ML RTUINJ IV PRN (19:21)
[2018-11-13] MEDS ORDERED: NORMAL SALINE 1000 ML 1,000 ML IV PRN (19:21)
[2018-11-13] MEDS ORDERED: ONDANSETRON HCL INJ/PF 4 MG/2 ML SDV IV PRN (21:53)
[2018-11-13] MEDS ORDERED: NORMAL SALINE 500 ML IV ONE (22:00)
[2018-11-13] MEDS ORDERED: CEFTRIAXONE SODIUM 1,000 MG in DEXTROSE 5%-WATER 50 ML IV SCH (22:00)
[2018-11-14 00:22] LABS: APPEARANCE,URINE SLIGHTLY-CLOUDY; BILIRUBIN,URINE NEGATIVE (NEGATIVE); COLOR,URINE YELLOW; GLUCOSE, URINE NEGATIVE (NEGATIVE); KETONES,URINE NEGATIVE (NEGATIVE); LEUKOCYTE ESTERASE,URINE NEGATIVE (NEGATIVE); NITRITE,URINE NEGATIVE (NEGATIVE); PROTEIN,URINE 30 mg/dL (NEGATIVE); URINE SPECIFIC GRAVITY 1.015; UROBILINOGEN,URINE NEGATIVE mg/dL (<2.0)
[2018-11-14] MEDS: METRONIDAZOLE 250 MG TABLET PO SCH ×2 (06:41→13:17)
[2018-11-14] MEDS: NORMAL SALINE 1000 ML 1,000 ML IV PRN ×3 (07:34→22:14)
[2018-11-14] MEDS ORDERED: ALBUTEROL SULFATE HFA (90 MCG/PUFF) 200 PUFF/8.5 GM MDI IH PRN (17:34)
--- NOTE | 2018-11-14 18:07 | PDOC H&P ---
History of Present Illness Admission Date/PCP: 11/13/18 18:22 CARLOS DANIEL MD Patient complains of: Nausae, Vomiing, Diarrhea, chest pain History of Present Illness: ARCHIE PAINTING is a 68 year old male patient of Dr. Daniel who was transferred from his office to the ED following presentation for ongoing diarrhea and vomiting for about 5 days. He reported associated nausea and soreness in his abdomen. He denied any tarry or blood stool. He denied hematemesis. Patient reported chills and intermittent fever since onset of his symptoms. he reported intermittent chest pain that lasted several minutes but resolved without any medical or medicine intervention. There was radiation of pain into his jaw and associated diaphoresis. Patient reported low blood pressure reading at home since onset of his ongoing symptoms and upon arrival in the ED his initial asse ssment revealed blood pressure in the 80/60 mmHg range. Despite IV fluid resuscitation his blood pressure remain low and he was advised hospitalization for further evaluation and management. His morbidities include HTN, HLD, CAD s/p CABG, COPD, PAD, Osteoarthritis, depression and chronic pain syndrome. Past Medical History Cardiac Medical History: Reports: Coronary Artery Disease, Myocardial Infarction, Hyperlipidema, Hypertension, Peripheral Vascular Disease Pulmonary Medical History: Reports: Asthma - MILD, Bronchitis, Chronic Obstructive Pulmonary Disease (COPD) Denies: Pneumonia Neurological Medical History: Denies: Migraine, Seizures Endocrine Medical History: Denies: Diabetes Mellitus Type 1, Diabetes Mellitus Type 2, Hyperthyroidism, Hypothyroidism Renal/ Medical History: Denies: End Stage Renal Disease Malignancy Medical History: Denies: Bone Cancer, Brain Cancer, Breast Cancer, Cervical Cancer, Colorectal Cancer, Leukemia, Liver Cancer, Lung Cancer, Lymphoma, Ovarian Cancer, Pancreatic Cancer, Renal (Kidney) Cancer, Skin Cancer GI Medical History: Reports: Other - Abdominal wall hernia just above the umbilicus. Has been there a long time Denies: Cirrhosis, Crohn's Disease, Diverticulitis, Gastroesophageal Reflux Disease, Hepatitis, Hiatal Hernia, Ulcerative Colitis Musculoskeltal Medical History: Reports: Arthritis - GENERALIZED Skin Medical History: Denies: Eczema, Psoriasis Psychiatric Medical History: Reports: Depression Traumatic Medical History: Denies: Gunshot Wound, Pneumothorax, Traumatic Brain Injury Hematology: Denies: Anemia, Hemophilia, Sickle Cell Disease, Bleeding Tendencies, Heparin Induced Thrombocytopenia, Neutropenia Infectious Medical History: Denies: Clostridium Difficile, HIV, Methicillin-Resistant Staph Aureus, Vancomycin-Resistant Enterococci Past Surgical History Past Surgical History: Reports: Appendectomy, Cardiac Catheterization - triple bypass, Internal Defibrillator, Vascular Surgery, Other - Status post several ventral hernia repair last one with mesh which failed. Social History Smoking Status: Former Smoker - Stopped 2-1/2 years ago Frequency of Alcohol Use: Social Hx Recreational Drug Use: No Drugs: None Hx Prescription Drug Abuse: No - Advance Directive Resuscitation Status: Full Code Family History Family History: Reviewed & Not Pertinent Parental Family History Reviewed: Yes Children Family History Reviewed: Yes Sibling(s) Family History Reviewed.: Yes Medication/Allergy Home Medications: Albuterol Sulfate [Ventolin HFA MDI 18 GM] 2 puff IH Q6HP PRN 06/15/16 Aspirin [Aspirin EC] 81 mg PO QHS 06/15/16 Atorvastatin Calcium [Lipitor 80 mg Tablet] 80 mg PO DAILY 06/15/16 Gabapentin [Neurontin 300 mg Capsule] 300 mg PO 5XD 06/15/16 Sertraline HCl [Zoloft] 100 mg PO DAILY 06/15/16 Budesonide/Formoterol Fumarate [Symbicort Hfa 160-4.5 Mcg Inhaler 6 gm] 2 puff IH Q12 11/13/18 Guaifenesin [Mucinex] 1,200 mg PO Q12 11/13/18 Lisinopril [Prinivil 10 mg Tablet] 40 mg PO QHS 11/13/18 Loratadine [Claritin 10 mg Tablet] 10 mg PO DAILY 11/13/18 Meloxicam [Mobic 7.5 mg Tablet] 7.5 mg PO DAILYP PRN 11/13/18 Omeprazole 40 mg PO DAILY 11/13/18 Allergies/Adverse Reactions: No Known Allergies Allergy (Verified 11/13/18 15:51) Review of Systems Constitutional: PRESENT: chills, fever(s) Eyes: ABSENT: visual disturbances Ears: ABSENT: hearing changes Nose, Mouth, and Throat: ABSENT: as per HPI, headache(s), mouth pain, sore throat, vertigo, other Cardiovascular: PRESENT: chest pain. ABSENT: as per HPI, dyspnea on exertion, edema, orthropnea, palpitations, other Respiratory: ABSENT: cough, hemoptysis Gastrointestinal: PRESENT: abdominal pain, diarrhea, nausea, vomiting. ABSENT: as per HPI, bloating, coffee ground emesis, constipation, dysphagia, heartburn, hematemesis, hematochezia, melena, other Genitourinary: ABSENT: dysuria, hematuria Musculoskeletal: PRESENT: back pain Integumentary: PRESENT: diaphoresis Neurological: ABSENT: abnormal gait, abnormal speech, confusion, dizziness, focal weakness, syncope Psychiatric: ABSENT: anxiety, depression, homidical ideation, suicidal ideation Endocrine: ABSENT: cold intolerance, heat intolerance, polydipsia, polyuria Hematologic/Lymphatic: ABSENT: easy bleeding, easy bruising, lymphadenopathy Allergic/Immunologic: ABSENT: seasonal rhinorrhea Physical Exam Vital Signs: Temp Pulse Resp BP Pulse Ox 97.8 F 18 89/52 L 100 11/13/18 17:27 11/13/18 19:00 11/13/18 18:58 11/13/18 19:00 Intake & Output 11/12/18 11/13/18 11/14/18 06:59 06:59 06:59 Intake Total 1550 Balance 1550 Weight 83.2 kg General appearance: PRESENT: no acute distress, well-developed, well-nourished Head exam: PRESENT: atraumatic, normocephalic Eye exam: PRESENT: conjunctiva pink, EOMI, PERRLA. ABSENT: scleral icterus Ear exam: PRESENT: normal external ear exam Mouth exam: PRESENT: moist Neck exam: PRESENT: full ROM. ABSENT: carotid bruit, JVD, lymphadenopathy, thyromegaly Respiratory exam: PRESENT: clear to auscultation jada Cardiovascular exam: PRESENT: RRR. ABSENT: diastolic murmur, rubs, systolic murmur Vascular exam: ABSENT: pallor GI/Abdominal exam: PRESENT: normal bowel sounds, soft, tenderness - more of epigastric region and soreness in character. ABSENT: distended, guarding, mass, organolmegaly, rebound Rectal exam: PRESENT: deferred Extremities exam: ABSENT: pedal edema Musculoskeletal exam: PRESENT: normal inspection Neurological exam: PRESENT: alert, awake, oriented to person, oriented to place, oriented to time, oriented to situation, CN II-XII grossly intact. ABSENT: motor sensory deficit Psychiatric exam: PRESENT: appropriate affect, normal mood. ABSENT: homicidal ideation, suicidal ideation Skin exam: PRESENT: dry, warm Results Laboratory Results: 11/13/18 15:25 11/13/18 15:25 11/13/18 11/13/18 11/13/18 15:25 15:25 17:10 WBC 12.5 H RBC 6.00 H Hgb 16.6 Hct 50.8 MCV 85 MCH 27.7 MCHC 32.7 RDW 16.0 H Plt Count 294 Seg Neutrophils % 76.4 Lymphocytes % 13.0 Monocytes % 8.2 Eosinophils % 1.9 Basophils % 0.5 Absolute Neutrophils 9.6 H Absolute Lymphocytes 1.6 Absolute Monocytes 1.0 Absolute Eosinophils 0.2 Absolute Basophils 0.1 Sodium 139.0 Potassium 4.3 Chloride 106 Carbon Dioxide 16 L Anion Gap 17 BUN 49 H Creatinine 5.14 H Est GFR ( Amer) 14 L Est GFR (Non-Af Amer) 11 L Glucose 85 Lactic Acid 1.0 Calcium 9.2 Total Bilirubin 1.1 AST 26 ALT 34 Alkaline Phosphatase 103 Total Protein 7.1 Albumin 4.1 11/13/18 11/13/18 11/13/18 15:25 15:25 18:08 Creatine Kinase 91 CK-MB (CK-2) 4.27 Troponin I 0.039 0.031 Impressions: Chest X-Ray 11/13/18 15:30 IMPRESSION: NO ACUTE RADIOGRAPHIC FINDING IN THE CHEST. Assessment & Plan - Diagnosis (1) Chest pain Qualifiers: Chest pain type: unspecified Is this a current diagnosis for this admission?: Yes Plan: See admitting attending physician orders for details about care plan. (2) Vomiting and diarrhea Is this a current diagnosis for this admission?: Yes Plan: See admitting attending physician orders for details about care plan. (3) Dehydration Is this a current diagnosis for this admission?: Yes Plan: See admitting attending physician orders for details about care plan. (4) Hypotension Qualifiers: Hypotension type: hypotension due to hypovolemia Qualified Code(s): I95.89 - Other hypotension; E86.1 - Hypovolemia Is this a current diagnosis for this admission?: Yes Plan: See admitting attending physician orders for details about care plan. (5) Hypertension Qualifiers: Hypertension type: essential hypertension Qualified Code(s): I10 - Essential (primary) hypertension Is this a current diagnosis for this admission?: Yes Plan: See admitting attending physician orders for details about care plan. (6) Hyperlipidemia Qualifiers: Hyperlipidemia type: unspecified Qualified Code(s): E78.5 - Hyperlipidemia, unspecified Is this a current diagnosis for this admission?: Yes Plan: See admitting attending physician orders for details about care plan. (7) Peripheral vascular disease Is this a current diagnosis for this admission?: Yes Plan: See admitting attending physician orders for details about care plan. - Time Time Spent: 50 to 70 Minutes Medications reviewed and adjusted accordingly: Yes Anticipated discharge: Home Within: Other - Inpatient Certification Based on my medical assessment, after consideration of the patient's comorbidities, presenting symptoms, or acuity I expect that the services needed warrant INPATIENT care.: Yes I certify that my determination is in accordance with my understanding of Medicare's requirements for reasonable and necessary INPATIENT services [42 CFR 412.3e].: Yes Medical Necessity: Significant Comorbidiites Make Outpatient Treatment Too Risky, Need Close Monitoring Due to Risk of Patient Decompensation, Need For IV Fluids, Need For Continuous Telemetry Monitoring, Need for IV Antibiotics, Risk of Complication if Not Cared For in Hospital, Risk of Diagnosis Which Will Require Inpatient Eval/Care/Monitoring Post Hospital Care: D/C [employer] Documentation - Plan Summary Plan Summary: See admitting attending physician orders for details about care plan.
--- NOTE | 2018-11-14 18:21 | PDOC PROGRESS REPORT ---
Subjective Progress Note for:: 11/14/18 Subjective:: Patient reported that his vomiting has resolved and nausea is fairly controlled with Zofran administration. His stool evaluation was reported positive for C.difficile toxin. he has been started on oral metronidazole treatment. He remain on IV fluid support. He denied any chest pain but there is soreness in abdomen. No fever or chills. Requested Ambien for sleep and reported that he has been on it intermittently in the past. Reason For Visit: VOMITING AND DIARRHEA, PRERENAL AZOTEMIA, Physical Exam Vital Signs: Temp Pulse Resp BP Pulse Ox 97.5 F 59 L 16 110/68 98 11/14/18 16:04 11/14/18 16:04 11/14/18 16:04 11/14/18 16:04 11/14/18 16:04 Intake & Output 11/13/18 11/14/18 11/15/18 06:59 06:59 06:59 Intake Total 4120 1738 Output Total 375 Balance 3745 1738 Weight 86.3 kg General appearance: PRESENT: no acute distress Head exam: PRESENT: atraumatic, normocephalic Eye exam: PRESENT: conjunctiva pink. ABSENT: scleral icterus Ear exam: PRESENT: normal external ear exam Mouth exam: PRESENT: moist Teeth exam: PRESENT: poor dentation Respiratory exam: PRESENT: clear to auscultation jada Cardiovascular exam: PRESENT: RRR. ABSENT: diastolic murmur, rubs, systolic murmur Vascular exam: ABSENT: pallor GI/Abdominal exam: PRESENT: normal bowel sounds, soft, tenderness - minimal to deep palpation. ABSENT: distended, guarding, mass, organolmegaly, rebound Rectal exam: PRESENT: deferred Extremities exam: ABSENT: pedal edema Neurological exam: PRESENT: alert, awake, oriented to person, oriented to place, oriented to time, oriented to situation, CN II-XII grossly intact. ABSENT: motor sensory deficit Psychiatric exam: PRESENT: appropriate affect, normal mood. ABSENT: homicidal ideation, suicidal ideation Skin exam: PRESENT: dry, warm Results Laboratory Results: 11/13/18 15:25 11/13/18 15:25 11/13/18 22:52 Urine Color YELLOW Urine Appearance SLIGHTLY-CLOUDY Urine pH 5.0 Ur Specific [place] 1.015 Urine Protein 30 H Urine Glucose (UA) NEGATIVE Urine Ketones NEGATIVE Urine Blood MODERATE H Urine Nitrite NEGATIVE Ur Leukocyte Esterase NEGATIVE Urine WBC (Auto) 4 Urine RBC (Auto) 1 11/13/18 11/13/18 11/13/18 15:25 15:25 18:08 Creatine Kinase 91 CK-MB (CK-2) 4.27 Troponin I 0.039 0.031 Impressions: Chest X-Ray 11/13/18 15:30 IMPRESSION: NO ACUTE RADIOGRAPHIC FINDING IN THE CHEST. Assessment & Plan - Diagnosis (1) C. difficile diarrhea Is this a current diagnosis for this admission?: Yes Plan: Increase Metronidazole to 500 mg p.o tid. Continue IV fluid support. (2) Acute infective gastroenteritis Is this a current diagnosis for this admission?: Yes Plan: Maintain on IV fluid support. Advance diet to mechanical soft consistency (3) Acute renal injury due to hypovolemia Is this a current diagnosis for this admission?: Yes Plan: Avoid nephrotoxic medications. Continue IV fluid support. Monitor renal indices. (4) Chest pain Qualifiers: Chest pain type: unspecified Is this a current diagnosis for this admission?: Yes Plan: Monitor cardiac enzymes. so far not indicative of any acute cardiac process. Abnormality may be due to his renal pathology. (5) Hypotension Qualifiers: Hypotension type: hypotension due to hypovolemia Qualified Code(s): I95.89 - Other hypotension; E86.1 - Hypovolemia Is this a current diagnosis for this admission?: Yes Plan: Improving. D/C Dopamine order. (6) Hypertension Qualifiers: Hypertension type: essential hypertension Qualified Code(s): I10 - Essential (primary) hypertension Is this a current diagnosis for this admission?: Yes Plan: Continue to monitor his blood pressure readings and adjust medication management as indicated. (7) Hyperlipidemia Qualifiers: Hyperlipidemia type: unspecified Qualified Code(s): E78.5 - Hyperlipidemia, unspecified Is this a current diagnosis for this admission?: Yes Plan: Continue current preadmission medication management. (8) Peripheral vascular disease Is this a current diagnosis for this admission?: Yes Plan: Continue current preadmission medication management. (9) COPD (chronic obstructive pulmonary disease) Qualifiers: Emphysema type: unspecified Is this a current diagnosis for this admission?: Yes Plan: Continue current preadmission medication management. - Time Time Spent with patient: 25-34 minutes Medications reviewed and adjusted accordingly: Yes Anticipated discharge: Home Within: Other - Inpatient Certification Based on my medical assessment, after consideration of the patient's comorbidities, presenting symptoms, or acuity I expect that the services needed warrant INPATIENT care.: Yes I certify that my determination is in accordance with my understanding of Medicare's requirements for reasonable and necessary INPATIENT services [42 CFR 412.3e].: Yes Medical Necessity: Significant Comorbidiites Make Outpatient Treatment Too Risky, Need Close Monitoring Due to Risk of Patient Decompensation, Need For IV Fluids, Need For Continuous Telemetry Monitoring, Risk of Complication if Not Cared For in Hospital, Risk of Diagnosis Which Will Require Inpatient Eval/ Care/Monitoring Post Hospital Care: D/C Mass [employer] Documentation - Plan Summary Plan Summary: See attending physician orders for details about care plan. I will change his admission status to full admission in view of his renal failure.
[2018-11-14 18:32] LABS: ABSOLUTE EOSINOPHILS # (AUTO) 0.3 10^3/uL (0.0-0.6); ABSOLUTE LYMPHOCYTES (AUTO) 1.1 10^3/uL (0.5-4.7); ABSOLUTE MONOCYTES (AUTO) 0.4 10^3/uL (0.1-1.4); ABSOLUTE NEUT (AUTO) 5.2 10^3/uL (1.7-8.2); BASOPHILS % (AUTO) 0.5 % (0-2); EOSINOPHILS % (AUTO) 4.2 % (0-6); HEMATOCRIT 44.1 % (37.9-51.0); LYMPHOCYTES % (AUTO) 15.6 % (13-45); MEAN CORPUSCULAR HEMOGLOBIN 27.7 pg (27.0-33.4); MEAN CORPUSCULAR HGB CONC 32.4 g/dL (32.0-36.0); MEAN CORPUSCULAR VOLUME 86 fl (80-97); MONOCYTES % (AUTO) 6.2 % (3-13); PLATELET COUNT 297 10^3/uL (150-450); RED BLOOD COUNT 5.16 10^6/uL (4.35-5.55); RED CELL DISTRIBUTION WIDTH 16.4 % (11.5-14.0); SEGMENTED NEUTROPHILS % (AUTO) 73.5 % (42-78); TOTAL CELLS COUNTED % (AUTO) 100 %
[2018-11-14 18:33] LABS: HEMOGLOBIN 14.3 g/dL (13.5-17.0)
--- NOTE | 2018-11-14 18:40 | EKG REPORT ---
SEVERITY:- ABNORMAL ECG - SINUS RHYTHM RBBB AND LAFB PROBABLE LEFT VENTRICULAR HYPERTROPHY : Confirmed by: Ashvin Perez 14-Nov-2018 18:39:47
[2018-11-14 18:44] LABS: ANION GAP 9 (5-19); BLOOD UREA NITROGEN 27 mg/dL (7-20); CALCIUM 8.7 mg/dL (8.4-10.2); CARBON DIOXIDE 19 mmol/L (22-30); CHLORIDE 113 mmol/L (98-107); CREATINE KINASE 77 U/L (55-170); GLUCOSE 109 mg/dL (75-110); POTASSIUM 4.5 mmol/L (3.6-5.0); SODIUM 140.9 mmol/L (137-145)
[2018-11-14 18:56] LABS: CREATINE KINASE MB 4.97 ng/mL (<4.55)
[2018-11-14 19:01] LABS: TROPONIN I < 0.012 ng/mL
[2018-11-14] MEDS ORDERED: METRONIDAZOLE 500 MG TABLET ONE (21:37)
[2018-11-14] MEDS: METRONIDAZOLE 500 MG TABLET PO SCH (21:49)
[2018-11-14] MEDS: ASPIRIN 81 MG TABLET, ENT COATED PO SCH (21:49)
[2018-11-15] MEDS: PANTOPRAZOLE SODIUM 40 MG TABLET.DR PO SCH (06:21)
[2018-11-15] MEDS: METRONIDAZOLE 500 MG TABLET PO SCH ×3 (06:21→21:00)
[2018-11-15] MEDS: NORMAL SALINE 1000 ML 1,000 ML IV PRN ×2 (06:21→23:47)
[2018-11-15] MEDS: GABAPENTIN 300 MG CAPSULE PO SCH ×5 (06:36→21:01)
[2018-11-15 06:43] LABS: ALANINE AMINOTRANSFERASE 41 U/L (21-72); ALBUMIN 2.9 g/dL (3.5-5.0); ALKALINE PHOSPHATASE 61 U/L (38-126); ANION GAP 6 (5-19); ASPARTATE AMINO TRANSFERASE 25 U/L (17-59); BILIRUBIN,DIRECT 0.3 mg/dL (0.0-0.4); BILIRUBIN,TOTAL 0.3 mg/dL (0.2-1.3); BLOOD UREA NITROGEN 19 mg/dL (7-20); CALCIUM 8.5 mg/dL (8.4-10.2); CARBON DIOXIDE 18 mmol/L (22-30); CHLORIDE 118 mmol/L (98-107); GLUCOSE 78 mg/dL (75-110); SODIUM 142.3 mmol/L (137-145); TOTAL PROTEIN 5.3 g/dL (6.3-8.2)
[2018-11-15] MEDS: SERTRALINE HCL 50 MG TABLET PO SCH (09:32)
[2018-11-15] MEDS: ATORVASTATIN CALCIUM 80 MG TABLET PO SCH (09:33)
[2018-11-15] MEDS: FLUTICASONE/VILANTEROL 200-25 MCG/DOSE IH SCH (09:33)
--- NOTE | 2018-11-15 09:44 | RADIOLOGY REPORT (SQ) ---
EXAM DESCRIPTION: U/S RETROPERITON (RENAL/AORTA) COMPLETED DATE/TIME: 11/15/2018 9:30 am REASON FOR STUDY: Acute renal failure A04.9 BACTERIAL INTESTINAL INFECTION, UNSPECIFIED COMPARISON: None. TECHNIQUE: Dynamic and static grayscale images acquired of the kidneys and bladder and recorded on P ACS. Additional selected color Doppler and spectral images recorded. LIMITATIONS: None. FINDINGS: RIGHT KIDNEY: Normal size, 11.7 cm in length. Mild increased echogenicity, normal cortica l thickness. No solid or suspicious masses. No hydronephrosis. No calcifications. LEFT KIDNEY: Normal size, 13.3 cm in length. Mild increased echogenicity, normal cortical thickness . No solid or suspicious masses. No hydronephrosis. No calcifications. BLADDER: No masses. Left ureteral jet visualized OTHER FINDINGS: No other significant finding. IMPRESSION: No hydronephrosis TECHNICAL DOCUMENTATION: JOB ID: [id number] DEQ- All Rights Reserved Reading location - IP/workstation name: [email or web address]
--- NOTE | 2018-11-15 13:55 | PDOC PROGRESS REPORT ---
Subjective Progress Note for:: 11/15/18 Subjective:: Patient reported improved nausea and vomiting. No abdominal pain, fever or chills. No chest pain or difficulty with breathing. Patient reported poor sleep pattern and requested for Ambien which he used with good result in the past. Reason For Visit: C.DIFFICILE COLITIS,GASTROENTERITIS Physical Exam Vital Signs: Temp Pulse Resp BP Pulse Ox 97.6 F 60 18 127/54 H 96 11/15/18 13:00 11/15/18 13:00 11/15/18 13:00 11/15/18 13:00 11/15/18 13:00 Intake & Output 11/14/18 11/15/18 11/16/18 06:59 06:59 06:59 Intake Total 4120 6943 Output Total 375 3250 Balance 3745 3693 Weight 86.3 kg 87.4 kg Physical Exam: General appearance: PRESENT: no acute distress Head exam: PRESENT: atraumatic, normocephalic Eye exam: PRESENT: conjunctiva pink. ABSENT: pallor, scleral icterus Ear exam: PRESENT: normal external ear exam Mouth exam: PRESENT: moist Teeth exam: PRESENT: poor dentition Respiratory exam: PRESENT: clear to auscultation jada Cardiovascular exam: PRESENT: RRR. ABSENT: diastolic murmur, rubs, systolic murmur GI/Abdominal exam: PRESENT: normal bowel sounds, soft, tenderness - minimal to deep palpation. ABSENT: distended, guarding, mass, organomegaly, rebound Extremities exam: ABSENT: pedal edema Neurological exam: PRESENT: alert, awake, oriented to person, oriented to place, oriented to time, oriented to situation, CN II-XII grossly intact. ABSENT: motor sensory deficit Psychiatric exam: PRESENT: appropriate affect, normal mood. ABSENT: homicidal ideation, suicidal ideation Skin exam: PRESENT: dry, warm Results Laboratory Results: 11/14/18 18:11 11/15/18 05:30 11/14/18 11/14/18 11/15/18 18:11 18:11 05:30 WBC 7.0 RBC 5.16 Hgb 14.3 D Hct 44.1 MCV 86 MCH 27.7 MCHC 32.4 RDW 16.4 H Plt Count 297 Seg Neutrophils % 73.5 Lymphocytes % 15.6 Monocytes % 6.2 Eosinophils % 4.2 Basophils % 0.5 Absolute Neutrophils 5.2 Absolute Lymphocytes 1.1 Absolute Monocytes 0.4 Absolute Eosinophils 0.3 Absolute Basophils 0.0 Sodium 140.9 142.3 Potassium 4.5 5.0 Chloride 113 H 118 H Carbon Dioxide 19 L 18 L Anion Gap 9 6 BUN 27 H 19 Creatinine 1.53 H 1.00 Est GFR ( Amer) 55 L > 60 Est GFR (Non-Af Amer) 46 L > 60 Glucose 109 78 Calcium 8.7 8.5 Total Bilirubin 0.3 AST 25 ALT 41 Alkaline Phosphatase 61 Total Protein 5.3 L Albumin 2.9 L 11/13/18 11/13/18 11/13/18 15:25 15:25 18:08 Creatine Kinase 91 CK-MB (CK-2) 4.27 Troponin I 0.039 0.031 11/14/18 11/14/18 18:11 18:11 Creatine Kinase 77 CK-MB (CK-2) 4.97 H Troponin I < 0.012 Impressions: Chest X-Ray 11/13/18 15:30 IMPRESSION: NO ACUTE RADIOGRAPHIC FINDING IN THE CHEST. Renal Ultrasound 11/15/18 00:00 IMPRESSION: No hydronephrosis Assessment & Plan - Diagnosis (1) C. difficile diarrhea Is this a current diagnosis for this admission?: Yes (2) Acute infective gastroenteritis Is this a current diagnosis for this admission?: Yes (3) Acute renal injury due to hypovolemia Is this a current diagnosis for this admission?: Yes (4) Chest pain Qualifiers: Chest pain type: unspecified Is this a current diagnosis for this admission?: Yes (5) Hypotension Qualifiers: Hypotension type: hypotension due to hypovolemia Qualified Code(s): I95.89 - Other hypotension; E86.1 - Hypovolemia Is this a current diagnosis for this admission?: Yes (6) Hypertension Qualifiers: Hypertension type: essential hypertension Qualified Code(s): I10 - Essential (primary) hypertension Is this a current diagnosis for this admission?: Yes (7) Hyperlipidemia Qualifiers: Hyperlipidemia type: unspecified Qualified Code(s): E78.5 - Hyperlipidemia, unspecified Is this a current diagnosis for this admission?: Yes (8) Peripheral vascular disease Is this a current diagnosis for this admission?: Yes (9) COPD (chronic obstructive pulmonary disease) Qualifiers: Emphysema type: unspecified Is this a current diagnosis for this admission?: Yes (10) Persistent insomnia Is this a current diagnosis for this admission?: Yes Plan: Start on Ambien 5 mg po qhs prn for insomnia. - Time Time Spent with patient: 25-34 minutes Medications reviewed and adjusted accordingly: Yes Anticipated discharge: Home Within: Other - Inpatient Certification Based on my medical assessment, after consideration of the patient's comorbidities, presenting symptoms, or acuity I expect that the services needed warrant INPATIENT care.: Yes I certify that my determination is in accordance with my understanding of Medicare's requirements for reasonable and necessary INPATIENT services [42 CFR 412.3e].: Yes Medical Necessity: Significant Comorbidiites Make Outpatient Treatment Too Risky, Need Close Monitoring Due to Risk of Patient Decompensation, Need For IV Fluids, Need For Continuous Telemetry Monitoring, Risk of Complication if Not Cared For in Hospital, Risk of Diagnosis Which Will Require Inpatient Eval/Care/Monitoring Post Hospital Care: D/C [employer] Documentation - Plan Summary Plan Summary: Continue current medication management. Start on Ambien 5 mg po qhs prn for insomnia.
[2018-11-15] MEDS: ASPIRIN 81 MG TABLET, ENT COATED PO SCH (21:01)
[2018-11-15] MEDS: ZOLPIDEM TARTRATE 5 MG TABLET PO PRN (23:33)
[2018-11-16] MEDS: GABAPENTIN 300 MG CAPSULE PO SCH ×5 (06:28→20:42)
[2018-11-16] MEDS: METRONIDAZOLE 500 MG TABLET PO SCH ×3 (06:28→21:48)
[2018-11-16] MEDS: PANTOPRAZOLE SODIUM 40 MG TABLET.DR PO SCH (06:28)
[2018-11-16] MEDS: SERTRALINE HCL 50 MG TABLET PO SCH (09:12)
[2018-11-16] MEDS: NORMAL SALINE 1000 ML 1,000 ML IV PRN ×2 (09:13→17:29)
[2018-11-16] MEDS: FLUTICASONE/VILANTEROL 200-25 MCG/DOSE IH SCH (09:13)
[2018-11-16] MEDS: ATORVASTATIN CALCIUM 80 MG TABLET PO SCH (09:13)
--- NOTE | 2018-11-16 13:12 | PDOC PROGRESS REPORT ---
Subjective Progress Note for:: 11/16/18 Subjective:: Patient denied any fever or chills. No nausea and vomiting, or abdominal pain. No chest pain or difficulty with breathing. Reason For Visit: C.DIFFICILE COLITIS,GASTROENTERITIS Physical Exam Vital Signs: Temp Pulse Resp BP Pulse Ox 97.2 F 59 L 18 138/80 H 95 11/16/18 11:21 11/16/18 11:21 11/16/18 11:21 11/16/18 11:21 11/16/18 11:21 Intake & Output 11/15/18 11/16/18 11/17/18 06:59 06:59 06:59 Intake Total 6943 6107 1600 Output Total 3250 2250 800 Balance 3693 3857 800 Weight 87.4 kg 90.8 kg Physical Exam: General appearance: PRESENT: no acute distress Head exam: PRESENT: atraumatic, normocephalic Eye exam: PRESENT: conjunctiva pink. ABSENT: pallor, scleral icterus Ear exam: PRESENT: normal external ear exam Mouth exam: PRESENT: moist Teeth exam: PRESENT: poor dentition Respiratory exam: PRESENT: clear to auscultation jada Cardiovascular exam: PRESENT: RRR. ABSENT: diastolic murmur, rubs, systolic murmur GI/Abdominal exam: PRESENT: normal bowel sounds, soft, tenderness - minimal to deep palpation. ABSENT: distended, guarding, mass, organomegaly, rebound Extremities exam: ABSENT: pedal edema Neurological exam: PRESENT: alert, awake, oriented to person, oriented to place, oriented to time, oriented to situation, CN II-XII grossly intact. ABSENT: motor sensory deficit Psychiatric exam: PRESENT: appropriate affect, normal mood. ABSENT: homicidal ideation, suicidal ideation Skin exam: PRESENT: dry, warm Results Laboratory Results: 11/14/18 18:11 11/15/18 05:30 11/13/18 22:52 Clean Catch Midstream Urine Culture - Final NO GROWTH 2 DAYS 11/13/18 11/13/18 11/13/18 15:25 15:25 18:08 Creatine Kinase 91 CK-MB (CK-2) 4.27 Troponin I 0.039 0.031 11/14/18 11/14/18 18:11 18:11 Creatine Kinase 77 CK-MB (CK-2) 4.97 H Troponin I < 0.012 Impressions: Chest X-Ray 11/13/18 15:30 IMPRESSION: NO ACUTE RADIOGRAPHIC FINDING IN THE CHEST. Renal Ultrasound 11/15/18 00:00 IMPRESSION: No hydronephrosis Assessment & Plan - Diagnosis (1) C. difficile diarrhea Is this a current diagnosis for this admission?: Yes (2) Acute infective gastroenteritis Is this a current diagnosis for this admission?: Yes (3) Acute renal injury due to hypovolemia Is this a current diagnosis for this admission?: Yes (4) Chest pain Qualifiers: Chest pain type: unspecified Is this a current diagnosis for this admission?: Yes (5) Hypotension Qualifiers: Hypotension type: hypotension due to hypovolemia Qualified Code(s): I95.89 - Other hypotension; E86.1 - Hypovolemia Is this a current diagnosis for this admission?: Yes (6) Hypertension Qualifiers: Hypertension type: essential hypertension Qualified Code(s): I10 - Essential (primary) hypertension Is this a current diagnosis for this admission?: Yes (7) Hyperlipidemia Qualifiers: Hyperlipidemia type: unspecified Qualified Code(s): E78.5 - Hyperlipidemia, unspecified Is this a current diagnosis for this admission?: Yes (8) Peripheral vascular disease Is this a current diagnosis for this admission?: Yes (9) COPD (chronic obstructive pulmonary disease) Qualifiers: Emphysema type: unspecified Is this a current diagnosis for this admission?: Yes (10) Persistent insomnia Is this a current diagnosis for this admission?: Yes - Time Time Spent with patient: 25-34 minutes Medications reviewed and adjusted accordingly: Yes Anticipated discharge: Home Within: Other - Inpatient Certification Based on my medical assessment, after consideration of the patient's comorbidities, presenting symptoms, or acuity I expect that the services needed warrant INPATIENT care.: Yes I certify that my determination is in accordance with my understanding of Medicare's requirements for reasonable and necessary INPATIENT services [42 CFR 412.3e].: Yes Medical Necessity: Significant Comorbidiites Make Outpatient Treatment Too Risky, Need Close Monitoring Due to Risk of Patient Decompensation, Need For IV Fluids, Need For Continuous Telemetry Monitoring, Risk of Complication if Not Cared For in Hospital, Risk of Diagnosis Which Will Require Inpatient Eval/Care/Monitoring Post Hospital Care: D/C [employer] Documentation - Plan Summary Plan Summary: Continue current medication management. Obtain CBC with diff and BMP in am.
[2018-11-16] MEDS: ASPIRIN 81 MG TABLET, ENT COATED PO SCH (21:47)
[2018-11-16] MEDS: ZOLPIDEM TARTRATE 5 MG TABLET PO PRN (23:36)
[2018-11-17] MEDS: NORMAL SALINE 1000 ML 1,000 ML IV PRN ×2 (01:40→10:21)
[2018-11-17 05:44] LABS: ABSOLUTE BASOPHILS # (AUTO) 0.1 10^3/uL (0.0-0.2); ABSOLUTE EOSINOPHILS # (AUTO) 0.3 10^3/uL (0.0-0.6); ABSOLUTE LYMPHOCYTES (AUTO) 1.6 10^3/uL (0.5-4.7); ABSOLUTE MONOCYTES (AUTO) 0.6 10^3/uL (0.1-1.4); ABSOLUTE NEUT (AUTO) 4.6 10^3/uL (1.7-8.2); BASOPHILS % (AUTO) 1.1 % (0-2); EOSINOPHILS % (AUTO) 4.6 % (0-6); HEMATOCRIT 38.9 % (37.9-51.0); LYMPHOCYTES % (AUTO) 21.9 % (13-45); MEAN CORPUSCULAR HEMOGLOBIN 27.8 pg (27.0-33.4); MEAN CORPUSCULAR HGB CONC 33.3 g/dL (32.0-36.0); MEAN CORPUSCULAR VOLUME 84 fl (80-97); MONOCYTES % (AUTO) 8.6 % (3-13); PLATELET COUNT 254 10^3/uL (150-450); RED BLOOD COUNT 4.66 10^6/uL (4.35-5.55); RED CELL DISTRIBUTION WIDTH 15.6 % (11.5-14.0); SEGMENTED NEUTROPHILS % (AUTO) 63.8 % (42-78); TOTAL CELLS COUNTED % (AUTO) 100 %; WHITE BLOOD COUNT 7.3 10^3/uL (4.0-10.5)
[2018-11-17 06:09] LABS: ANION GAP 7 (5-19); BLOOD UREA NITROGEN 12 mg/dL (7-20); CALCIUM 8.6 mg/dL (8.4-10.2); CARBON DIOXIDE 21 mmol/L (22-30); CHLORIDE 112 mmol/L (98-107); GLUCOSE 80 mg/dL (75-110); POTASSIUM 4.5 mmol/L (3.6-5.0); SODIUM 140.2 mmol/L (137-145)
[2018-11-17] MEDS: GABAPENTIN 300 MG CAPSULE PO SCH ×4 (06:22→16:20)
[2018-11-17] MEDS: PANTOPRAZOLE SODIUM 40 MG TABLET.DR PO SCH (06:22)
[2018-11-17] MEDS: METRONIDAZOLE 500 MG TABLET PO SCH ×2 (06:22→13:13)
[2018-11-17] MEDS: SERTRALINE HCL 50 MG TABLET PO SCH (10:22)
[2018-11-17] MEDS: FLUTICASONE/VILANTEROL 200-25 MCG/DOSE IH SCH (10:22)
[2018-11-17] MEDS: ATORVASTATIN CALCIUM 80 MG TABLET PO SCH (10:22)
--- NOTE | 2018-11-17 16:35 | PDOC DISCHARGE SUMMARY ---
General - Admit/Disc Date/PCP Admission Date/Primary Care Provider: 11/13/18 18:22 CARLOS DANIEL MD Discharge Date: 11/17/18 - Discharge Diagnosis (1) C. difficile diarrhea Is this a current diagnosis for this admission?: Yes (2) Acute infective gastroenteritis Is this a current diagnosis for this admission?: Yes (3) Acute renal injury due to hypovolemia Is this a current diagnosis for this admission?: Yes (4) Chest pain Is this a current diagnosis for this admission?: Yes (5) Hypotension Is this a current diagnosis for this admission?: Yes (6) Hypertension Is this a current diagnosis for this admission?: Yes (7) Hyperlipidemia Is this a current diagnosis for this admission?: Yes (8) Peripheral vascular disease Is this a current diagnosis for this admission?: Yes (9) COPD (chronic obstructive pulmonary disease) Is this a current diagnosis for this admission?: Yes (10) Persistent insomnia Is this a current diagnosis for this admission?: Yes - Additional Information Resuscitation Status: Full Code Discharge Diet: Cardiac Discharge Activity: Activity As Tolerated Prescriptions: Metronidazole [Flagyl 500 mg Tablet] 500 mg PO Q8 #20 tablet Zolpidem Tartrate [Ambien 5 mg Tablet] 5 mg PO HSP PRN #30 tablet PRN Reason: Home Medications: Albuterol Sulfate [Ventolin HFA MDI 18 GM] 2 puff IH Q6HP PRN 06/15/16 Aspirin [Aspirin EC] 81 mg PO QHS 06/15/16 Atorvastatin Calcium [Lipitor 80 mg Tablet] 80 mg PO DAILY 06/15/16 Gabapentin [Neurontin 300 mg Capsule] 300 mg PO 5XD 06/15/16 Sertraline HCl [Zoloft] 100 mg PO DAILY 06/15/16 Budesonide/Formoterol Fumarate [Symbicort HFA 160-4.5 mcg Inhaler 6 gm] 2 puff IH Q12 11/13/18 Guaifenesin [Mucinex] 1,200 mg PO Q12 11/13/18 Lisinopril [Prinivil 10 mg Tablet] 40 mg PO QHS 11/13/18 Loratadine [Claritin 10 mg Tablet] 10 mg PO DAILY 11/13/18 Meloxicam [Mobic 7.5 mg Tablet] 7.5 mg PO DAILYP PRN 11/13/18 Omeprazole 40 mg PO DAILY 11/13/18 Metronidazole [Flagyl 500 mg Tablet] 500 mg PO Q8 #20 tablet 11/17/18 Zolpidem Tartrate [Ambien 5 mg Tablet] 5 mg PO HSP PRN #30 tablet 11/17/18 History of Present Illness Patient complains of: Diarrhea, vomiting History of Present Illness: ARCHIE PAINTING is a 68 year old male patient of Dr. Daniel who was transferred from his office to the ED following presentation for ongoing diarrhea and vomiting for about 5 days. He reported associated nausea and soreness in his abdomen. He denied any tarry or blood stool. He denied hematemesis. Patient reported chills and intermittent fever since onset of his symptoms. he reported intermittent chest pain that lasted several minutes but resolved without any medical or medicine intervention. There was radiation of pain into his jaw and associated diaphoresis. Patient reported low blood pressure reading at home since onset of his ongoing symptoms and upon arrival in the ED his initial assessment revealed blood pressure in the 80/60 mmHg range. Despite IV fluid resuscitation his blood pressure remain low and he was advised hospitalization for further evaluation and management. His morbidities include Hypertension, Hyperlipidemia, CAD s/p CABG, COPD, PAD, Osteoarthritis, depression and chronic pain syndrome. Hospital Course Hospital Course: Patient was initially admitted with concern for infectious diarrhea. His stool evaluation did revealed positive C. difficile toxin titer. He was subsequently maintained on oral Metronidazole therapy with resolution of his symptoms. His stool culture revealed presumptive growth of Camphylobacter species. Patient remain afebrile with resolution of his associated leukocytosis. He will be discharged home on oral Metronidazole for 7 days for his C.difficile diarrhea management. He will follow up with Dr. Daniel as instructed upon discharge. Physical Exam Vital Signs: Temp Pulse Resp BP Pulse Ox 97.7 F 60 16 164/88 H 95 11/17/18 11:19 11/17/18 14:00 11/17/18 11:19 11/17/18 11:19 11/17/18 11:19 Intake & Output 11/16/18 11/17/18 11/18/18 06:59 06:59 06:59 Intake Total 6107 6240 2080 Output Total 2250 1500 1075 Balance 3857 4740 1005 Weight 90.8 kg 91.3 kg Physical Exam: General appearance: PRESENT: no acute distress Head exam: PRESENT: atraumatic, normocephalic Eye exam: PRESENT: conjunctiva pink. ABSENT: pallor, scleral icterus Ear exam: PRESENT: normal external ear exam Mouth exam: PRESENT: moist Teeth exam: PRESENT: poor dentition Respiratory exam: PRESENT: clear to auscultation jada Cardiovascular exam: PRESENT: RRR. ABSENT: diastolic murmur, rubs, systolic murmur GI/Abdominal exam: PRESENT: normal bowel sounds, soft, tenderness - minimal to deep palpation. ABSENT: distended, guarding, mass, organomegaly, rebound Extremities exam: ABSENT: pedal edema Neurological exam: PRESENT: alert, awake, oriented to person, oriented to place, oriented to time, oriented to situation, CN II-XII grossly intact. ABSENT: motor sensory deficit Psychiatric exam: PRESENT: appropriate affect, normal mood. ABSENT: homicidal ideation, suicidal ideation Skin exam: PRESENT: dry, warm Results Laboratory Results: 11/17/18 05:23 11/17/18 05:23 11/17/18 11/17/18 05:23 05:23 WBC 7.3 RBC 4.66 Hgb 13.0 L Hct 38.9 MCV 84 MCH 27.8 MCHC 33.3 RDW 15.6 H Plt Count 254 Seg Neutrophils % 63.8 Lymphocytes % 21.9 Monocytes % 8.6 Eosinophils % 4.6 Basophils % 1.1 Absolute Neutrophils 4.6 Absolute Lymphocytes 1.6 Absolute Monocytes 0.6 Absolute Eosinophils 0.3 Absolute Basophils 0.1 Sodium 140.2 Potassium 4.5 Chloride 112 H Carbon Dioxide 21 L Anion Gap 7 BUN 12 Creatinine 0.70 Est GFR ( Amer) > 60 Est GFR (Non-Af Amer) > 60 Glucose 80 Calcium 8.6 11/14/18 04:21 Stool - Stool - Final 11/13/18 22:52 Clean Catch Midstream Urine Culture - Final NO GROWTH 2 DAYS 11/13/18 11/13/18 11/13/18 15:25 15:25 18:08 Creatine Kinase 91 CK-MB (CK-2) 4.27 Troponin I 0.039 0.031 11/14/18 11/14/18 18:11 18:11 Creatine Kinase 77 CK-MB (CK-2) 4.97 H Troponin I < 0.012 Impressions: Chest X-Ray 11/13/18 15:30 IMPRESSION: NO ACUTE RADIOGRAPHIC FINDING IN THE CHEST. Renal Ultrasound 11/15/18 00:00 IMPRESSION: No hydronephrosis Qualifiers - * PATIENT BEING DISCHARGED WITH ANY OF THE FOLLOWING DIAGNOSIS: No Acute Heart Failure - Is this a Heart Failure Patient?: No Plan Discharge Plan: D/c home today. Follow up with Dr. Daniel as instructed upon discharge.
[2018-11-17 17:05] VITALS: BP 167/90
== END 2018-11-17 17:40 | disposition home or self-care (01) | DRG 372 ==
LOC: ER 15:29 → OBSVTOIN 18:22 → EH 18:22 → 3W 21:15
PROVIDERS: ADMIT Internal Medicine Geriatric Medicine; ATTEND Internal Medicine Geriatric Medicine
DX: A04.72 Enterocolitis due to Clostridium difficile, not specified as recurrent (principal); N17.9 Acute kidney failure, unspecified; I10 Essential (primary) hypertension; E78.5 Hyperlipidemia, unspecified; I25.10 Atherosclerotic heart disease of native coronary artery without angina pectoris; I25.2 Old myocardial infarction; I73.9 Peripheral vascular disease, unspecified; J44.9 Chronic obstructive pulmonary disease, unspecified; K43.9 Ventral hernia without obstruction or gangrene; E86.0 Dehydration; E86.1 Hypovolemia; G47.09 Other insomnia
CPT/HCPCS: 36415; 71045; 76770; 80048; 80053; 81001; 82550; 82553; 83605; 84484; 85025; 87040; 87045; 87077; 87086; 87205; 87493; 93005; 93010; 96360; 96361; 99291; J0696; J2405; J3490; J7030; J7040; J7060